=== PATIENT | male | born 1940 | race Caucasian/White ===

== ENCOUNTER 2022-11-24 15:52 | Emergency (ER) | payer MEDICARE, OTHER ==
--- NOTE | 2022-11-24 15:54 | ERPHSYRPT ---
- History of Present Illness Time Seen by Provider: 11/24/22 15:54 Source: patient, family Exam Limitations: no limitations Physician History: This is an 82-year-old right-handed white male who was working on the table saw when he suffered a laceration to the distal portion of his right middle finger. His tetanus status is not up-to-date. Quality: painful Severity: moderate Location: hands (Right third digit distal) Associated Symptoms: denies symptoms Allergies/Adverse Reactions: No Known Drug Allergies Allergy (Verified 11/24/22 16:28) Home Medications: Gabapentin [Neurontin] 400 mg PO TID 11/24/22 [History] Travel Risk - International Travel Have you traveled outside of the country in past 3 weeks: No - Coronavirus Screening Are you exhibiting any of the following symptoms?: No Close contact with a COVID-19 positive Pt in past 14-21 Days: No - Review of Systems Constitutional: No Symptoms Eyes: No Symptoms Ears, Nose, & Throat: No Symptoms Respiratory: No Symptoms Cardiac: No Symptoms Abdominal/Gastrointestinal: No Symptoms Genitourinary Symptoms: No Symptoms Musculoskeletal: Injury (Distal right middle finger) Skin: No Symptoms Neurological: No Symptoms Psychological: No Symptoms Endocrine: No Symptoms Hematologic/Lymphatic: No Symptoms Immunological/Allergic: No Symptoms All Other Systems: Reviewed and Negative - Past Medical History Neurological History: No Pertinent History Cardiac History: No Pertinent History Respiratory History: No Pertinent History Endocrine Medical History: Hypothyroidism, Other Musculoskeletal History: Osteoarthritis Other Medical History: 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 HX RIGHT TKR ABOUT 2 YEARS AGO, ENLARGED PROSTATE, PROSTATE CA - Nursing Vital Signs Nursing Vital Signs: Initial Vital Signs Temperature 98.0 F 11/24/22 16:07 Pulse Rate 91 H 11/24/22 16:07 Blood Pressure 104/65 11/24/22 16:07 O2 Sat by Pulse Oximetry 94 L 11/24/22 16:07 Pain Scale Pain Intensity 6 - Physical Exam General Appearance: no apparent distress, alert, anxiety Eye Exam: PERRL/EOMI, eyes nml inspection Ears, Nose, Throat Exam: normal ENT inspection, moist mucous membranes Neck Exam: normal inspection, non-tender, supple, full range of motion Respiratory Exam: airway intact, No chest tenderness, No respiratory distress Gastrointestinal/Abdomen Exam: tenderness Rectal Exam: not done Back Exam: normal inspection, normal range of motion, No CVA tenderness, No vertebral tenderness Extremity Exam: normal inspection, normal range of motion, pelvis stable Neurologic Exam: alert, oriented x 3, cooperative, 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 Patient has full flexion and extension of his right middle digit. The tendons appear intact.) Lymphatic Exam: No adenopathy SpO2 Interpretation: normal O2 Delivery: Room Air Procedures - Laceration/Wound Repair Right Distal Finger Time of Procedure: 16:40 Wound Location: Right, hand (Distal third digit) Wound Length (cm): 2 Wound's Depth, Shape: irregular, stellate, into subcut Wound Explored: clean (No foreign body noted. Exploration was performed in a bloodless field to the base) Irrigated: Yes Hibiclens Prep: Yes Anesthesia: 1% Lidocaine Volume Anesthetic (ccs): 3 Wound Debrided: minimal Suture Size/Type: 3-0, nylon Number of Sutures: 4 Layer Closure?: No Sterile Dressing Applied?: Yes Progress: 11/24/22 17:00 The area was cleaned and dried after repair. Thin layer of antibiotic ointment was applied and a pressure dressing was applied. Patient tolerated procedure well - Course Nursing assessment & vital signs reviewed: Yes Ordered Tests: Active Orders 24 hr Category Date Time Status Wound Care STAT Care 11/24/22 16:15 Active HAND (MINIMUM 3 VIEWS) Stat Exams 11/24/22 16:24 Completed Medication Summary Discontinued Medications Generic Name Dose Route Start Last Admin Trade Name Freq PRN Reason Stop Dose Admin Bacitracin Zinc 0.9 each 11/24/22 16:15 Bacitracin Packet 1 Each Pckt TP 11/24/22 16:16 STAT ONE Bacitracin Zinc Confirm 11/24/22 16:16 Bacitracin Packet 1 Each Pckt Administered 11/24/22 16:17 Dose 1 each .ROUTE .STK-MED ONE Cephalexin HCl 500 mg 11/24/22 16:38 Cephalexin Mh500 Mg Capsule PO 11/24/22 16:39 STAT ONE Diphtheria/Tetanus/Acell Pertussis 0.5 ml 11/24/22 16:17 11/24/22 16:23 Tdap --Diph,Pertuss(Acell),Tet Vac/Pf 0.5 Ml Vial IM 11/24/22 16:18 0.5 ml .ONCE ONE Administration Diphtheria/Tetanus/Acell Pertussis Confirm 11/24/22 16:21 Tdap --Diph,Pertuss(Acell),Tet Vac/Pf 0.5 Ml Vial Administered 11/24/22 16:22 Dose 0.5 ml IM .STK-MED ONE Lidocaine HCl 5 ml 11/24/22 16:15 11/24/22 16:20 Lidocaine Hcl 1% 20 Ml Mdv 20 Ml Ml IJ 11/24/22 16:16 5 ml STAT ONE Administration Lidocaine HCl Confirm 11/24/22 16:14 Lidocaine Hcl 1% 20 Ml Mdv 20 Ml Ml Administered 11/24/22 16:15 Dose 5 ml .ROUTE .STK-MED ONE - Progress Progress: improved, pain not gone completely, re-examined Progress Note: 11/24/22 16:37 X-ray right hand was interpreted by me. The there is a tuft fracture present of the distal right third phalanx. 11/24/22 16:57 This patient's medical issues 1 of low complexity. The level of complexity in the work-up performed was based on the review of the patient's past medical history, review of the patient's medication list, review of the patient's drug allergy list, history of present illness and physical examination findings. X- ray of the right hand was necessary to evaluate for fracture of this lacerated distal right hand third phalanx. The patient appears to have an open fracture and therefore he will be placed on antibiotics. I approximated the stellate, macerated lacerated site with 4 stitches of 3-0 nylon. Pressure dressing was applied. This is to remain in place until he follows up at the [facility] orthopedic clinic. We contacted Dr. Ruano's office (hand surgeon) and they told us to follow-up at that clinic at 8 AM tomorrow morning. It is on [address]. It is a walk-in clinic and they do not need to have an appointment. Medical Desision Making - Independent Historian Additional History obtained from: Spouse - Diagnostic Testing Diagnostic test were ordered, analyzed, and reviewed by me: Yes Radiological Interpretation: Interpreted by me - Risk of complications The pt has a mod risk of morbidity or mortality based on: Need for prescription drug management - Departure Departure Disposition: Home Clinical Impression: Open fracture of phalanx of digit of hand Condition: Stable Critical Care Time: No Referrals: LISA BENSON MD [Primary Care Provider] - Follow up/PCP as directed Additional Instructions: Keep the current bandage in place and dry until you are evaluated by the [facility] orthopedic clinic on in [place], [place] tomorrow morning at 8 AM. It is a walk-in clinic and you do not need to have an appointment. Take your usual pain medicine as prescribed. Prescriptions: Cephalexin Mh 500 mg [Keflex 500 mg] 500 mg PO TID #21 cap
[2022-11-24] MEDS ORDERED: XYLOCAINE 1% HCL 20 ML MDV ONE (16:14)
[2022-11-24] MEDS ORDERED: XYLOCAINE 1% HCL 20 ML MDV IJ ONE (16:15)
[2022-11-24] MEDS ORDERED: BACIGUENT PACKET TP ONE (16:15)
[2022-11-24] MEDS ORDERED: BACIGUENT PACKET ONE (16:16)
[2022-11-24] MEDS ORDERED: Adacel Vial IM ONE ×2 (16:17→16:21)
[2022-11-24 16:28] VITALS: BP 104/65
[2022-11-24] MEDS ORDERED: KEFLEX 500 MG PO ONE (16:38)
--- NOTE | 2022-11-24 16:44 | XRAY ---
Indication: 3rd digit laceration. Comparison: None 3 view right hand demonstrates distal 3rd phalanx laceration with soft tissue swelling and tiny cortical fracture radial aspect. Elsewhere chronic findings including osteopenia, old fracture distal 3rd phalanx, mild/moderate degenerative changes all IP joints with tiny heterotopic ossifications, moderate 1st metacarpal multangular degenerative changes, and radiocarpal joint space loss.
[2022-11-24] MEDS ORDERED: KEFLEX 500 MG ONE (17:13)
[2022-11-24 17:17] VITALS: PULSE 80; O2SAT 96
== END 2022-11-24 17:23 | disposition home or self-care (01) ==
LOC: ED 15:52
DX: S62.632B Displaced fracture of distal phalanx of right middle finger, initial encounter for open fracture (principal); W27.0XXA Contact with workbench tool, initial encounter; Z79.899 Other long term (current) drug therapy
CPT/HCPCS: 12001; 73130; 90471; 90715; 96372; 99283; A9270-GY

== ENCOUNTER 2023-01-09 23:23 | Emergency (ER) | payer MEDICARE, OTHER ==
[2023-01-09] MEDS ORDERED: XYLOCAINE 1% HCL 20 ML MDV IJ ONE (23:24)
[2023-01-09 23:46] VITALS: BP 139/82; PULSE 80; O2SAT 97
[2023-01-09] MEDS ORDERED: Rocephin 1000 MG INJ IM ONE (23:52)
[2023-01-09] MEDS ORDERED: Rocephin 1000 MG INJ ONE (23:57)
--- NOTE | 2023-01-10 00:04 | ERPHSYRPT ---
- History of Present Illness Time Seen by Provider: 01/09/23 23:50 Source: patient Exam Limitations: no limitations Patient Subjective Stated Complaint: pt states he had surgical repair of open fracture to right distal finger medial approx [address] Winslow in [facility]. he then saw the surgeon 2 days ago and the ex fix pins were removed. yesterday he states it was swollen and red but painless then he bumped it on something and started having tolerable pain. this morning states they unwrapped it and swelling/ redness had increased and there was pain. denies fever. Triage Nursing Assessment: pt ambulated to room 9 independently with cane and slow steady gait. pt is alert and oriented times three (very [id number]'), able to move all extremities, able to speak in complete sentences, and with resp even and unlabored. denies any other ill feelings than his right middle finger. see skin assessment below. Physician History: 83-year-old male presents the emergency room with right middle finger pain, redness and swelling for the past day. Patient had an open fracture of this finger with pinning approximately [address] Ruano at [facility]. On Wednesday the pins were removed and since that time the symptoms have been worsening. reports that the swelling has significantly worsened over the past 4 to 6 hours. No fevers reported. He was on antibiotics after the surgery but nothing since that time. He denies any numbness or tingling to the finger. Occurred: days ago (1) Quality: sharpness Severity of Pain-Max: moderate Severity of Pain-Current: moderate Extremities Pain Location: 3rd finger: right Modifying Factors: Improves With: cold therapy. Worsens With: movement Associated Symptoms: none Allergies/Adverse Reactions: No Known Drug Allergies Allergy (Verified 01/09/23 23:28) Home Medications: Gabapentin [Neurontin] 400 mg PO TID 11/24/22 [History] Hx Tetanus, Diphtheria Vaccination/Date Given: Yes Hx Influenza Vaccination/Date Given: Yes Hx Pneumococcal Vaccination/Date Given: Yes Immunizations Up to Date: Yes Travel Risk - International Travel Have you traveled outside of the country in past 3 weeks: No - Coronavirus Screening Are you exhibiting any of the following symptoms?: No Close contact with a COVID-19 positive Pt in past 14-21 Days: No - Vaccine Status Have you recieved a Covid-19 vaccination: Yes 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: [employer] - Review of Systems Constitutional: No Symptoms Respiratory: No Symptoms Cardiac: No Symptoms Abdominal/Gastrointestinal: No Symptoms Musculoskeletal: Joint Redness (right middle), Joint Pain (right middle), Joint Swelling (right middle) Skin: Cellulitis Neurological: No Parasthesia - Past Medical History Pertinent Past Medical History: Yes Neurological History: No Pertinent History ENT History: No Pertinent History Cardiac History: No Pertinent History Respiratory History: No Pertinent History Endocrine Medical History: Hypothyroidism, Other Musculoskeletal History: Fractures, Osteoarthritis GI Medical History: No Pertinent History History: No Pertinent History Psycho-Social History: No Pertinent History Male Reproductive Disorders: Prostate Cancer, Prostate Problems Other Medical History: 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 HX RIGHT TKR ABOUT 2 YEARS AGO, ENLARGED PROSTATE, PROSTATE CA - Past Surgical History Past Surgical History: Yes Neuro Surgical History: No Pertinent History Cardiac: No Pertinent History Respiratory: No Pertinent History Gastrointestinal: Appendectomy, Hernia Repair, Other Genitourinary: No Pertinent History Musculoskeletal: Orthopedic Surgery Male Surgical History: No Pertinent History Other Surgical History: knee, right middle finger, hernia repair - Social History Smoking Status: Former smoker Exposure to second hand smoke: Yes Drug Use: none Patient Lives Alone: No - Nursing Vital Signs Nursing Vital Signs: Initial Vital Signs Temperature 97.3 F 01/09/23 23:30 Pulse Rate 80 01/09/23 23:30 Respiratory Rate 18 01/09/23 23:30 Blood Pressure 139/82 01/09/23 23:30 O2 Sat by Pulse Oximetry 97 01/09/23 23:30 Pain Scale Pain Intensity 8 - Physical Exam General Appearance: no apparent distress Hand Exam: infection (right 3rd finger), limited ROM (right 3rd finger), soft tissue tenderness (right 3rd finger), stiffness (right 3rd finger), swelling (right 3rd finger) Neuro/Tendon Exam: normal sensation Mental Status Exam: alert, oriented x 3, cooperative SpO2 Interpretation: normal SpO2: 97 O2 Delivery: Room Air Ordered Tests: Medication Summary Discontinued Medications Generic Name Dose Route Start Last Admin Trade Name Freq PRN Reason Stop Dose Admin Ceftriaxone Sodium 1,000 mg 01/09/23 23:52 01/09/23 23:58 Ceftriaxone Sodium 1000 Mg Inj Vial IM 01/09/23 23:53 1,000 mg STAT ONE Administration Ceftriaxone Sodium Confirm 01/09/23 23:57 Ceftriaxone Sodium 1000 Mg Inj Vial Administered 01/09/23 23:58 Dose 1,000 mg .ROUTE .STK-MED ONE - Progress Progress: unchanged Progress Note: Based on examination and patient history I have concerns for flexor tenosynovitis. I discussed that patient will likely need transfer after evaluation with labs and imaging. Patient would like to be discharged and proceed to [facility] for evaluation where Dr. Ruano is located. Patient was agreeable to receiving 1 g of IM Rocephin prior to discharge. I called [facility] emergency room and updated them that the patient would be coming to the emergency room. Counseled pt/family regarding: diagnosis, need for follow-up Medical Desision Making - Risk of complications The pt has a mod risk of morbidity or mortality based on: Need for prescription drug management - Departure Departure Disposition: Home (Patient will travel to [facility]) Clinical Impression: Flexor tenosynovitis of finger, Swelling of right middle finger, Pain of right middle finger, Cellulitis of right middle finger Condition: Stable Critical Care Time: No Referrals: LISA BENSON MD [Primary Care Provider] - Follow up/PCP as directed Instructions: Wound Care (DC) Additional Instructions: Patient will travel to [facility]
== END 2023-01-10 00:12 | disposition home or self-care (01) ==
LOC: ED 23:23
DX: M65.841 Other synovitis and tenosynovitis, right hand (principal); M79.89 Other specified soft tissue disorders; M79.644 Pain in right finger(s); L03.011 Cellulitis of right finger; Z79.899 Other long term (current) drug therapy
CPT/HCPCS: 96372; 99283; J0696

== ENCOUNTER 2023-02-22 10:36 | Observation (INO) | payer MEDICARE, OTHER ==
[2023-02-22 11:56] LABS: Absolute Neutrophil Ct (ANC) 13.21 x10^3/uL (1.4-6.9); BASOPHIL % 0.1 % (0.0-0.4); Basophil (Absolute #) 0.02 x10^3/uL (0-0.4); Eosinophil (Absolute #) 0.45 x10^3/uL (0-0.5); Hematocrit 31.7 % (42-50); Hemoglobin 10.3 g/dL (12.5-18.0); IMMATURE GRAN # 0.26 x10^3u/L (0.00-0.03); IMMATURE GRAN % 1.8 % (0.00-0.4); Lymphocyte (Absolute #) 0.37 x10^3/uL (1.0-4.6); Lymphocytes % 2.5 % (24.0-44.0); Mean Cell Volume 94.6 fL (78-100); Mean Corpuscular Hemoglobin 30.7 pg (26-32); Mean Corpuscular Hgb Concent. 32.5 g/dL (32-36); Mean Platelet Volume 8.8 fL (7.5-11.0); Monocyte (Absolute #) 0.46 x10^3/uL (0.0-1.3); Monocytes % 3.1 % (0.0-12.0); Neutrophil % 89.5 % (36.0-66.0); Platelet Count 423 x10^3/uL (150-450); Red Blood Count 3.35 x10^6/uL (4.1-5.6); Red Cell Distribution Width 12.9 % (11.5-14.0); White Blood Count 14.8 x10^3/uL (4.0-10.5)
--- NOTE | 2023-02-22 11:58 | ERPHSYRPT ---
- History of Present Illness Source: patient, other () Exam Limitations: no limitations Patient Subjective Stated Complaint: C/O Cough for almost 2 weeks with increased SOB and fever for a few days Triage Nursing Assessment: Patient brought back to ER in a W/C. He is alert and oriented; drowsy. Pale. Patient is SOB. 02 sats 87% on room air; he doesn't wear oxygen at home. 02 @ 3L per n/c applied and 02 sats increased to 94%. Edema noted under bilateral eyes. Patient with a dry, non-productive cough present. Slight crackles heard in right lung base. Pain with cough. PICC line noted to ANALISA. Physician History: 83 yo WM w cough/dyspnea/coryza/fever x 1week. Pt is is receiving an antibiotic through PIC line for a finger infection. He saw Dr. Quiros on 02/18/23 for his cough. He denies chest pain/N/V/D/melena/hematochezia/dysuria/hematuria. Pt has metastatic prostate Ca. Timing/Duration: week(s) (1 week) Cough Quality/Degree: dry cough Possible Cause: occasional episodes Modifying Factors: Improves With: activity Associated Symptoms: fever, cough, shortness of breath Allergies/Adverse Reactions: No Known Drug Allergies Allergy (Verified 02/22/23 11:32) Home Medications: Aspirin EC 81 mg [Ecotrin 81 mg] 81 mg PO DAILY 01/13/23 [History] Enzalutamide [Xtandi] 160 mg PO DAILY 01/13/23 [History] Levothyroxine Sodium 88 Mcg [Synthroid 88 Mcg] 88 mcg PO DAILY 01/13/23 [History] Mirtazapine 15 mg PO HS 01/13/23 [History] Ca/D3/Mag Ox/Zinc/Assembler Type Bar And Segment/[place]/Bor [Calcium 600+D3 Plus Caplet] 1 each PO BID 01/14/23 [History] Finasteride 5 mg [Proscar 5 MG] 5 mg PO DAILY 01/14/23 [History] Gabapentin [Neurontin] 400 mg PO TID 01/14/23 [History] Hydrocodone/Acetaminophen [Hydrocodone-Acetamin 10-325 mg] 10 mg PO QID 01/14/23 [History] Levocetirizine Dihydrochloride [Allergy Relief] 5 mg PO DAILY 01/14/23 [History] Meclizine HCl 25 mg [Antivert 25 mg] 25 mg PO TID 01/14/23 [History] Montelukast Sodium 10 mg [Singulair 10 MG] 10 mg PO DAILY 01/14/23 [History] Prochlorperazine Maleate 10 mg PO BID 01/14/23 [History] Venlafaxine HCl 37.5 mg [Effexor 37.5 mg] 37.5 mg PO DAILY 01/14/23 [History] Vibegron [Gemtesa] 75 mg PO DAILY 02/22/23 [History] Hx Tetanus, Diphtheria Vaccination/Date Given: Yes Hx Influenza Vaccination/Date Given: Yes Hx Pneumococcal Vaccination/Date Given: Yes Immunizations Up to Date: Yes Travel Risk - International Travel Have you traveled outside of the country in past 3 weeks: No - Coronavirus Screening Are you exhibiting any of the following symptoms?: Yes Symptoms: Fever, Cough: New Onset, Shortness of Breath Close contact with a COVID-19 positive Pt in past 14-21 Days: No - Vaccine Status Have you recieved a Covid-19 vaccination: Yes 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[employer] - Review of Systems Constitutional: No Symptoms, Fever, Lethargy, Malaise Eyes: No Symptoms Ears, Nose, & Throat: No Symptoms, Nose Congestion, Nose Discharge Respiratory: No Symptoms, Cough, Dyspnea Cardiac: No Symptoms Abdominal/Gastrointestinal: No Symptoms Genitourinary Symptoms: No Symptoms Musculoskeletal: No Symptoms Skin: No Symptoms Neurological: No Symptoms Psychological: No Symptoms Endocrine: No Symptoms Hematologic/Lymphatic: No Symptoms Immunological/Allergic: No Symptoms - Past Medical History Pertinent Past Medical History: Yes Neurological History: No Pertinent History ENT History: No Pertinent History Cardiac History: No Pertinent History Respiratory History: No Pertinent History Endocrine Medical History: Hypothyroidism, Other Musculoskeletal History: Fractures, Osteoarthritis GI Medical History: Hernia History: No Pertinent History Psycho-Social History: No Pertinent History Male Reproductive Disorders: Prostate Cancer, Prostate Problems Other Medical History: 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 ENLARGED PROSTATE, PROSTATE CA - Past Surgical History Past Surgical History: Yes Neuro Surgical History: No Pertinent History Cardiac: No Pertinent History Respiratory: No Pertinent History Gastrointestinal: Appendectomy, Hernia Repair, Other Genitourinary: No Pertinent History Musculoskeletal: Orthopedic Surgery Male Surgical History: No Pertinent History Other Surgical History: knee, right middle finger - Social History Smoking Status: Former smoker Exposure to second hand smoke: Yes Drug Use: none Patient Lives Alone: No - Nursing Vital Signs Nursing Vital Signs: Initial Vital Signs Temperature 98.3 F 02/22/23 11:20 Pulse Rate 100 H 02/22/23 11:20 Respiratory Rate 36 H 02/22/23 11:20 Blood Pressure 162/80 02/22/23 11:20 O2 Sat by Pulse Oximetry 87 L 02/22/23 11:20 Pain Scale Pain Intensity 6 Tachy/Hypertensive/Low Sats - Physical Exam General Appearance: mild distress Eye Exam: PERRL/EOMI, eyes nml inspection Ears, Nose, Throat Exam: normal ENT inspection, TMs normal, pharynx normal, moist mucous membranes Neck Exam: normal inspection, non-tender, supple, full range of motion, No meningismus, No mass, No Brudzinski, No Kernig's Respiratory Exam: crackles/rales (Rale 1/2 up on R/base on L) Cardiovascular Exam: murmur (1/6 MICHELLE), tachycardia Gastrointestinal/Abdomen Exam: soft, normal bowel sounds, No tenderness Back Exam: normal inspection, normal range of motion, No CVA tenderness, No vertebral tenderness Extremity Exam: normal inspection, normal range of motion Neurologic Exam: alert, oriented x 3, cooperative, slurry man II-XII nml as tested, normal mood/affect, sensation nml Skin Exam: normal color, warm, dry Lymphatic Exam: No adenopathy SpO2 Interpretation: normal SpO2: 95 O2 Delivery: Nasal Cannula (2L) - Course Nursing assessment & vital signs reviewed: Yes EKG Interpreted by Me: RATE (Sinus tach/Rate 101/Normal Qt-QTc/No acute ST segment changes) - Radiology Exams Chest X-ray Interpretation: Reviewed by me, Discussed w/ radiologist (R upper lobe-RLL infiltrate/Basilar L infiltrate) Ordered Tests: Active Orders 24 hr Category Date Time Status Call Admit Doctor for Orders ON ADMISSION Care 02/22/23 12:50 Completed EKG-ER Only STAT Care 02/22/23 11:38 Completed IV Insertion STAT Care 02/22/23 11:50 Completed Heart-Healthy Diet Diet 02/22/23 Dinner Active CHEST 1 VIEW (PORTABLE) Stat Exams 02/22/23 11:39 Completed BLOOD CULTURE Stat Lab 02/22/23 12:15 Received CBC W DIFF Stat Lab 02/22/23 11:45 Completed CMP Stat Lab 02/22/23 11:45 Completed Lactic Acid Stat Lab 02/22/23 11:50 Completed NT PRO BNPII Stat Lab 02/22/23 11:45 Completed PROTIME WITH INR Stat Lab 02/22/23 11:45 Completed TROPONIN Q4H Lab 02/22/23 11:45 Completed TROPONIN Q4H Lab 02/22/23 15:43 Completed TROPONIN Q4H Lab 02/22/23 19:45 Ordered Transfer Order Routine Transfer 02/22/23 Completed Medication Summary Generic Name Dose Route Start Last Admin Trade Name Freq PRN Reason Stop Dose Admin Hydrocodone Bitart/Acetaminophen 1 tablet 02/22/23 17:00 02/22/23 17:05 Hydrocodone/Acetamin 10-325 Mg Tablet PO 02/27/23 16:59 1 tablet QID ALY Administration Albuterol Sulfate 2.5 mg 02/22/23 19:00 Albuterol Sulfate 2.5 Mg/3 Ml Neb IH 03/24/23 18:59 TIDRT ALY Aspirin 81 mg 02/23/23 10:00 Aspirin 81 Mg Tablet.Ec PO 03/25/23 09:59 DAILY ALY Calcium Carbonate 1 tab 02/22/23 22:00 Calcium Carbonate 500 Mg/Vitamin D 1 Tab Tablet PO 03/24/23 21:59 BID [facility] Enoxaparin Sodium 40 mg 02/23/23 10:00 Enoxaparin Sodium 40 Mg/0.4 Ml Syringe SQ 03/25/23 09:59 DAILY ALY Finasteride 5 mg 02/23/23 10:00 Finasteride 5 Mg Tablet PO 03/25/23 09:59 DAILY ALY Furosemide 20 mg 02/22/23 17:00 02/22/23 17:05 Furosemide 20 Mg/Vial IV 03/24/23 16:59 20 mg BID DIURETIC ALY Administration Gabapentin 400 mg 02/22/23 22:00 Gabapentin 400 Mg Capsule PO 03/24/23 21:59 TID ALY Heparin Sodium (Beef Lung) 300 units 02/22/23 16:29 02/22/23 17:16 Heparin Lock Flush Pf 500 Units/5 Ml Syringe PICC 03/24/23 16:28 300 units PRN PRN Administration IV PORT FLUSH Piperacillin Sod/Tazobactam 100 mls @ 200 mls/hr 02/22/23 22:00 Sod 4.5 gm/ Sodium Chloride IV 03/24/23 21:59 Q8HT ALY Levothyroxine Sodium 88 mcg 02/23/23 10:00 Levothyroxine Sodium 88 Mcg Tablet PO 03/25/23 09:59 DAILY ALY Loratadine 10 mg 02/23/23 10:00 Loratadine 10 Mg Tablet PO 03/25/23 09:59 DAILY ALY Meclizine HCl 25 mg 02/22/23 22:00 Meclizine Hcl 25 Mg Tablet PO 03/24/23 21:59 TID ALY Mirtazapine 15 mg 02/22/23 22:00 Mirtazapine 15 Mg Tablet PO 03/24/23 21:59 HS ALY Miscellaneous Information 1 each 02/22/23 16:00 Medication Intervention 1 Each Each 03/24/23 15:59 .RN TO CHECK ALY Montelukast Sodium 10 mg 02/23/23 10:00 Montelukast Sodium 10 Mg Tablet PO 03/25/23 09:59 DAILY ALY Gemtesa 75 Mg Tab - 1 each 02/22/23 18:00 Patient Own PO 03/24/23 17:59 DAILY ALY Prednisone 20 mg 02/22/23 22:00 Prednisone 20 Mg Tablet PO 03/24/23 21:59 BID ALY Prochlorperazine 10 mg 02/22/23 22:00 Prochlorperazine Maleate 5 Mg Tablet PO 03/24/23 21:59 BID ALY Venlafaxine HCl 37.5 mg 02/23/23 10:00 Venlafaxine Hcl 37.5 Mg Tablet PO 03/25/23 09:59 DAILY ALY Discontinued Medications Generic Name Dose Route Start Last Admin Trade Name Freq PRN Reason Stop Dose Admin Piperacillin Sod/Tazobactam 100 mls @ 200 mls/hr 02/22/23 11:59 02/22/23 1 2:44 Sod 4.5 gm/ Sodium Chloride IV 02/22/23 12:28 200 mls/hr STAT ONE Administration Sodium Chloride Confirm 02/22/23 12:41 Sodium Chloride 0.9% Administered 02/22/23 12:42 Dose 100 mls @ ud .ROUTE .STK-MED ONE Sodium Chloride Confirm 02/22/23 12:42 Sodium Chloride 100ml Mini-Bag Plus Administered 02/22/23 12:43 Dose 100 mls @ ud IV .STK-MED ONE Azithromycin 500 mg in 250 mls @ 250 mls/hr 02/22/23 12:49 02/22/23 13:09 Zithromax 500 Mg/ 250 Ml Nacl Premix IV 02/22/23 13:48 250 ml/hr STAT STA 250 mls/hr Administration Azithromycin Confirm 02/22/23 13:07 Zithromax 500 Mg/ 250 Ml Nacl Premix Administered 02/22/23 13:08 Dose 500 mg in 250 mls @ ud IV .STK-MED ONE Sodium Chloride 250 mls @ 250 mls/hr 02/22/23 15:00 02/22/23 15:16 Sodium Chloride 0.9% 250 Ml IV 02/22/23 15:59 250 mls/hr .Q1H ALY Administration Miscellaneous Information 1 each 02/22/23 16:00 Medication Intervention 1 Each Each MC 03/24/23 15:59 .RN TO CHECK ALY Piperacillin Sod/Tazobactam Sod Confirm 02/22/23 12:40 Piperacillin/Tazobactam Sodium 4.5 Gm Vial Administered 02/22/23 12:41 Dose 4.5 gm IV .STK-MED ONE Piperacillin Sod/Tazobactam Sod Confirm 02/22/23 12:42 Piperacillin/Tazobactam Sodium 4.5 Gm Vial Administered 02/22/23 12:43 Dose 4.5 gm IV .STK-MED ONE Lab/Rad Data: Laboratory Result Diagrams 02/22/23 11:45 02/22/23 11:45 Laboratory Results 02/22/23 02/22/23 02/22/23 Range/Units 11:50 11:50 11:45 WBC (4.0-10.5) x10^3/uL RBC (4.1-5.6) x10^6/uL Hgb (12.5-18.0) g/dL Hct (42-50) % MCV (78-100) fL MCH (26-32) pg MCHC (32-36) g/dL RDW (11.5-14.0) % Plt Count (150-450) x10^3/uL MPV (7.5-11.0) fL Gran % (36.0-66.0) % Immature Gran % (Auto) (0.00-0.4) % Nucleat RBC Rel Count (0.00-0.1) % Eos # (Auto) (0-0.5) x10^3/uL Immature Gran # (Auto) (0.00-0.03) x10^3u/L Absolute Lymphs (auto) (1.0-4.6) x10^3/uL Absolute Monos (auto) (0.0-1.3) x10^3/uL Absolute Nucleated RBC (0.00-0.01) x10^3u/L Lymphocytes % (24.0-44.0) % Monocytes % (0.0-12.0) % Eosinophils % (0.00-5.0) % Basophils % (0.0-0.4) % Absolute Granulocytes (1.4-6.9) x10^3/uL Basophils # (0-0.4) x10^3/uL PT (9.4-12.5) SECONDS INR (0.8-3.0) Sodium (137-145) mmol/L Potassium (3.5-5.1) mmol/L Chloride (98-107) mmol/L Carbon Dioxide (22-30) mmol/L Anion Gap (5-15) MEQ/L BUN (9-20) mg/dL Creatinine (0.66-1.25) mg/dL Estimated GFR ML/MIN Glucose (74-106) mg/dL Lactic Acid 2.2 H (0.4-2.0) Calcium (8.4-10.2) mg/dL Total Bilirubin (0.2-1.3) mg/dL AST (17-59) U/L ALT (0-50) U/L Alkaline Phosphatase (38-126) U/L Troponin I (0.000-0.034) ng/mL NT-Pro-B Natriuret Pep 1750 (<300) pg/mL Serum Total Protein (6.3-8.2) g/dL Albumin (3.5-5.0) g/dL Influenza Type A Ag NEGATIVE (NEGATIVE) Influenza Type B Ag NEGATIVE (NEGATIVE) RSV (PCR) NEGATIVE (NEGATIVE) SARS-CoV-2 (PCR) NEGATIVE (NEGATIVE) Slides for Path Review 02/22/23 02/22/23 02/22/23 Range/Units 11:45 11:45 11:45 WBC (4.0-10.5) x10^3/uL RBC (4.1-5.6) x10^6/uL Hgb (12.5-18.0) g/dL Hct (42-50) % MCV (78-100) fL MCH (26-32) pg MCHC (32-36) g/dL RDW (11.5-14.0) % Plt Count (150-450) x10^3/uL MPV (7.5-11.0) fL Gran % (36.0-66.0) % Immature Gran % (Auto) (0.00-0.4) % Nucleat RBC Rel Count (0.00-0.1) % Eos # (Auto) (0-0.5) x10^3/uL Immature Gran # (Auto) (0.00-0.03) x10^3u/L Absolute Lymphs (auto) (1.0-4.6) x10^3/uL Absolute Monos (auto) (0.0-1.3) x10^3/uL Absolute Nucleated RBC (0.00-0.01) x10^3u/L Lymphocytes % (24.0-44.0) % Monocytes % (0.0-12.0) % Eosinophils % (0.00-5.0) % Basophils % (0.0-0.4) % Absolute Granulocytes (1.4-6.9) x10^3/uL Basophils # (0-0.4) x10^3/uL PT 11.0 (9.4-12.5) SECONDS INR 1.01 (0.8-3.0) Sodium 133 L (137-145) mmol/L Potassium 3.9 (3.5-5.1) mmol/L Chloride 98 (98-107) mmol/L Carbon Dioxide 28 (22-30) mmol/L Anion Gap 10.5 (5-15) MEQ/L BUN 20 (9-20) mg/dL Creatinine 0.73 (0.66-1.25) mg/dL Estimated GFR > 60.0 ML/MIN Glucose 105 (74-106) mg/dL Lactic Acid (0.4-2.0) Calcium 8.5 (8.4-10.2) mg/dL Total Bilirubin 0.70 (0.2-1.3) mg/dL AST 42 (17-59) U/L ALT 37 (0-50) U/L Alkaline Phosphatase 228 H (38-126) U/L Troponin I < 0.012 (0.000-0.034) ng/mL NT-Pro-B Natriuret Pep (<300) pg/mL Serum Total Protein 5.8 L (6.3-8.2) g/dL Albumin 2.8 L (3.5-5.0) g/dL Influenza Type A Ag (NEGATIVE) Influenza Type B Ag (NEGATIVE) RSV (PCR) (NEGATIVE) SARS-CoV-2 (PCR) (NEGATIVE) Slides for Path Review 02/22/23 Range/Units 11:45 WBC 14.8 H (4.0-10.5) x10^3/uL RBC 3.35 L (4.1-5.6) x10^6/uL Hgb 10.3 L (12.5-18.0) g/dL Hct 31.7 L (42-50) % MCV 94.6 (78-100) fL MCH 30.7 (26-32) pg MCHC 32.5 (32-36) g/dL RDW 12.9 (11.5-14.0) % Plt Count 423 (150-450) x10^3/uL MPV 8.8 (7.5-11.0) fL Gran % 89.5 H (36.0-66.0) % Immature Gran % (Auto) 1.8 H (0.00-0.4) % Nucleat RBC Rel Count 0.0 (0.00-0.1) % Eos # (Auto) 0.45 (0-0.5) x10^3/uL Immature Gran # (Auto) 0.26 H (0.00-0.03) x10^3u/L Absolute Lymphs (auto) 0.37 L (1.0-4.6) x10^3/uL Absolute Monos (auto) 0.46 (0.0-1.3) x10^3/uL Absolute Nucleated RBC 0.00 (0.00-0.01) x10^3u/L Lymphocytes % 2.5 L (24.0-44.0) % Monocytes % 3.1 (0.0-12.0) % Eosinophils % 3.0 (0.00-5.0) % Basophils % 0.1 (0.0-0.4) % Absolute Granulocytes 13.21 H (1.4-6.9) x10^3/uL Basophils # 0.02 (0-0.4) x10^3/uL PT (9.4-12.5) SECONDS INR (0.8-3.0) Sodium (137-145) mmol/L Potassium (3.5-5.1) mmol/L Chloride (98-107) mmol/L Carbon Dioxide (22-30) mmol/L Anion Gap (5-15) MEQ/L BUN (9-20) mg/dL Creatinine (0.66-1.25) mg/dL Estimated GFR ML/MIN Glucose (74-106) mg/dL Lactic Acid (0.4-2.0) Calcium (8.4-10.2) mg/dL Total Bilirubin (0.2-1.3) mg/dL AST (17-59) U/L ALT (0-50) U/L Alkaline Phosphatase (38-126) U/L Troponin I (0.000-0.034) ng/mL NT-Pro-B Natriuret Pep (<300) pg/mL Serum Total Protein (6.3-8.2) g/dL Albumin (3.5-5.0) g/dL Influenza Type A Ag (NEGATIVE) Influenza Type B Ag (NEGATIVE) RSV (PCR) (NEGATIVE) SARS-CoV-2 (PCR) (NEGATIVE) Slides for Path Review YES - Progress Progress: improved Progress Note: 02/22/23 18:15 Nursing note and vital signs reviewed No food or housing insecurities noted O2 per NC palced on pt when he arrived to ER due to low sats 02/22/23 18:16 Additional history per All labs reviewed and shared w pt/ CXR result reviewed and shared w pt/ 02/22/23 18:17 Blood cultures x2 4.5 gms IV Zosyn Obs per Dr. Hatfield Zithromax 500mg IV Full code per pt Counseled pt/family regarding: lab results, diagnosis, rad results - Departure Departure Disposition: Observation Clinical Impression: Pneumonia Condition: Stable Critical Care Time: Yes Critical Care Time(excluding separately billable procedures): Critical 30-74 mins
[2023-02-22] MEDS ORDERED: PIPERACILLIN/TAZOBACTAM 4.5 GM in Sodium Chloride 100ML MINI-BAG PLUS 100 ML IV ONE (11:59)
--- NOTE | 2023-02-22 12:07 | XRAY ---
Indication: Dyspnea and cough. Comparison: February 19, 2022 Portable apical lordotic chest now underinflated. New diffuse right lung and left base patchy consolidating/nonconsolidating airspace disease, possible Covid 19 pneumonia in right clinical setting. Heart not enlarged. Bony thorax intact again with mild degenerative changes.
[2023-02-22 12:09] LABS: INR 1.01 (0.8-3.0)
[2023-02-22 12:12] LABS: ALBUMIN 2.8 g/dL (3.5-5.0); ALKALINE PHOSPHATASE 228 U/L (38-126); ANION GAP 10.5 MEQ/L (5-15); BLOOD UREA NITROGEN 20 mg/dL (9-20); CHLORIDE 98 mmol/L (98-107); Calcium 8.5 mg/dL (8.4-10.2); Carbon Dioxide 28 mmol/L (22-30); Creatinine 1 0.73 mg/dL (0.66-1.25); EST GLOMERULAR FILTRATION RATE > 60.0 ML/MIN; Glucose 105 mg/dL (74-106); Potassium 3.9 mmol/L (3.5-5.1); SGOT/AST 42 U/L (17-59); SGPT/ALT 37 U/L (0-50); SODIUM 133 mmol/L (137-145); Total Protein 5.8 g/dL (6.3-8.2)
[2023-02-22 12:34] LABS: INFLUENZA A NEGATIVE (NEGATIVE); INFLUENZA B NEGATIVE (NEGATIVE); RESPIRATORY SYNCTIAL VIRUS NEGATIVE (NEGATIVE); SARS-CoV-2 Xpert Express NEGATIVE (NEGATIVE)
[2023-02-22] MEDS ORDERED: PIPERACILLIN/TAZOBACTAM IV ONE ×2 (12:40→12:42)
[2023-02-22] MEDS ORDERED: Sodium Chloride 0.9% 0 ML ONE (12:41)
[2023-02-22] MEDS ORDERED: Sodium Chloride 100ML MINI-BAG PLUS 100 ML IV ONE (12:42)
[2023-02-22] MEDS ORDERED: Zithromax 500 MG/ 250 ML NaCl Premix 500 MG/250 ML IVPB IV STA (12:49)
[2023-02-22] MEDS ORDERED: Zithromax 500 MG/ 250 ML NaCl Premix 500 MG/250 ML IVPB IV ONE (13:07)
[2023-02-22 13:19] LABS: Slide Review 1 YES
--- NOTE | 2023-02-22 14:47 | PCM.HP ---
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 Pt came into the ER C/O Cough for almost 2 weeks with increased SOB, and fever for 3 days. He has had some intermittent, non radiating CP in the center of his chest for 3 days as well. Pt reports it's mostly in the morning. Activity made his sxs worse. Nothing made him feel better. In ER 02 sats 87% on room air; he doesn't wear oxygen at home. 02 @ 3L per n/c applied and 02 sats increased to 94%. Patient with a dry, non-productive cough present. + 3 pitting edema to BLLE. PICC line noted to LUE for recent infection and injury to finger. Antibiotics prescribed by Dr. Fairbanks- ID, OP. is wanting PICC line removed if OK with Dr. Fairbanks. Will reach out to him to discuss. Pt has a Lactic acid of 2.2, CBC 14.8, Chest XR shows right sided pneumonia, HR elevated. Does meet r equirements for sepsis. BCX2 drawn in ER. 1st trop negative. PCP- Dr. Gipson Manager Salt: Dr. Johnson - Review of Systems Constitutional: Fever, Weakness, No Chills Eyes: No Symptoms Ears, Nose, & Throat: No Symptoms Respiratory: Cough, Short Of Breath Cardiac: Chest Pain, Edema, No Syncope Abdominal/Gastrointestinal: No Abdominal Pain, No Nausea, No Vomiting, No Diarrhea Genitourinary Symptoms: No Dysuria Musculoskeletal: No Back Pain, No Neck Pain Skin: No Rash Neurological: No Dizziness, No Focal Weakness, No Sensory Changes Psychological: No Symptoms Endocrine: No Symptoms Hematologic/Lymphatic: No Symptoms Immunological/Allergic: No Symptoms Medications & Allergies Home Medications: Home Medication List Aspirin EC 81 mg [Ecotrin 81 mg] 81 mg PO DAILY 01/13/23 [History Confirmed 02/22/23] Enzalutamide [Xtandi] 40 mg PO QID 01/13/23 [History Confirmed 02/22/23] Levothyroxine Sodium 88 Mcg [Synthroid 88 Mcg] 88 mcg PO DAILY 01/13/23 [History Confirmed 02/22/23] Mirtazapine 15 mg PO HS 01/13/23 [History Confirmed 02/22/23] Ca/D3/Mag Ox/Zinc/Radio Host/[place]/Bor [Calcium 600+D3 Plus Caplet] 1 each PO BID 01/14/23 [History Confirmed 02/22/23] Finasteride 5 mg [Proscar 5 MG] 5 mg PO DAILY 01/14/23 [History Confirmed 02/22/23] Gabapentin [Neurontin] 400 mg PO TID 01/14/23 [History Confirmed 02/22/23] Hydrocodone/Acetaminophen [Hydrocodone-Acetamin 10-325 mg] 10 mg PO QID 01/14/23 [History Confirmed 02/22/23] Levocetirizine Dihydrochloride [Allergy Relief] 5 mg PO DAILY 01/14/23 [History Confirmed 02/22/23] Meclizine HCl 25 mg [Antivert 25 mg] 25 mg PO TID 01/14/23 [History Confirmed 02/22/23] Montelukast Sodium 10 mg [Singulair 10 MG] 10 mg PO DAILY 01/14/23 [History Confirmed 02/22/23] Prochlorperazine Maleate 10 mg PO BID 01/14/23 [History Confirmed 02/22/23] Venlafaxine HCl 37.5 mg [Effexor 37.5 mg] 37.5 mg PO DAILY 01/14/23 [History Confirmed 02/22/23] Vibegron [Gemtesa] 75 mg PO DAILY 02/22/23 [History Confirmed 02/22/23] Allergies/Adverse Reactions: Allergies Allergy/AdvReac Type Severity Reaction Status Date / Time No Known Drug Allergies Allergy Verified 02/22/23 11:32 - Past Medical History Past Medical History: Yes Neurological History: No Pertinent History ENT History: No Pertinent History Cardiac History: No Pertinent History Respiratory History: No Pertinent History Endocrine Medical History: Hypothyroidism, Other Musculoskelatal History: Fractures, Osteoarthritis GI Medical History: Hernia History: No Pertinent History Pyscho-Social History: No Pertinent History Male Reproductive Disorders: Prostate Cancer, Prostate Problems Comment: 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 ENLARGED PROSTATE, PROSTATE CA - Past Surgical History Past Surgical History: Yes Neuro Surgical History: No Pertinent History Cardiac History: No Pertinent History Respiratory Surgery: No Pertinent History GI Surgical History: Appendectomy, Hernia Repair, Other Genitourinary Surgical Hx: No Pertinent History Musculskeletal Surgical Hx: Orthopedic Surgery Male Surgical History: No Pertinent History Other Surgical History: knee, right middle finger - Social History Smoking Status: Former smoker How long have you smoked: 30 years Exposure to second hand smoke: Yes Alcohol: None Drug Use: none - Physical Exam Vital Signs: Vital Signs - 24 hr Temp Pulse Resp BP BP Pulse Ox 02/22/23 13:45 98.4 F 104 H 19 121/67 93 L 02/22/23 13:26 98.3 F 101 H 19 121/67 93 L 02/22/23 12:43 95 02/22/23 12:01 101 H 136/68 96 02/22/23 11:25 103 H 24 162/80 95 02/22/23 11:20 98.3 F 100 H 36 H 162/80 87 L General Appearance: no apparent distress, alert Neurologic Exam: alert, oriented x 3, cooperative, normal mood/affect, nml cerebellar function, nml station & gait, sensation nml, No motor deficits Eye Exam: PERRL/EOMI, eyes nml inspection Ears, Nose, Throat Exam: normal ENT inspection, TMs normal, pharynx normal, moist mucous membranes Neck Exam: normal inspection, non-tender, supple, full range of motion Respiratory Exam: crackles/rales, wheezing (Right lung benjamin), other (3 LNC- BL RA), No respiratory distress Cardiovascular Exam: regular rate/rhythm, normal heart sounds, normal peripheral pulses, edema (+ 3 pitting BLLE) Gastrointestinal/Abdomen Exam: soft, normal bowel sounds, No tenderness, No mass Back Exam: normal inspection, normal range of motion, No CVA tenderness, No vertebral tenderness Extremity Exam: normal inspection, normal range of motion, pelvis stable Skin Exam: normal color, warm, dry, No rash Lymphatic Exam: No adenopathy Results - Labs Lab/Micro Results: Lab Results-Last 24 Hours 02/22/23 02/22/23 02/22/23 Range/Units 11:45 11:45 11:45 WBC 14.8 H (4.0-10.5) x10^3/uL RBC 3.35 L (4.1-5.6) x10^6/uL Hgb 10.3 L (12.5-18.0) g/dL Hct 31.7 L (42-50) % MCV 94.6 (78-100) fL MCH 30.7 (26-32) pg MCHC 32.5 (32-36) g/dL RDW 12.9 (11.5-14.0) % Plt Count 423 (150-450) x10^3/uL MPV 8.8 (7.5-11.0) fL Gran % 89.5 H (36.0-66.0) % Immature Gran % (Auto) 1.8 H (0.00-0.4) % Nucleat RBC Rel Count 0.0 (0.00-0.1) % Eos # (Auto) 0.45 (0-0.5) x10^3/uL Immature Gran # (Auto) 0.26 H (0.00-0.03) x10^3u/L Absolute Lymphs (auto) 0.37 L (1.0-4.6) x10^3/uL Absolute Monos (auto) 0.46 (0.0-1.3) x10^3/uL Absolute Nucleated RBC 0.00 (0.00-0.01) x10^3u/L Lymphocytes % 2.5 L (24.0-44.0) % Monocytes % 3.1 (0.0-12.0) % Eosinophils % 3.0 (0.00-5.0) % Basophils % 0.1 (0.0-0.4) % Absolute Granulocytes 13.21 H (1.4-6.9) x10^3/uL Basophils # 0.02 (0-0.4) x10^3/uL PT 11.0 (9.4-12.5) SECONDS INR 1.01 (0.8-3.0) Sodium 133 L (137-145) mmol/L Potassium 3.9 (3.5-5.1) mmol/L Chloride 98 (98-107) mmol/L Carbon Dioxide 28 (22-30) mmol/L Anion Gap 10.5 (5-15) MEQ/L BUN 20 (9-20) mg/dL Creatinine 0.73 (0.66-1.25) mg/dL Estimated GFR > 60.0 ML/MIN Glucose 105 (74-106) mg/dL Lactic Acid (0.4-2.0) Calcium 8.5 (8.4-10.2) mg/dL Total Bilirubin 0.70 (0.2-1.3) mg/dL AST 42 (17-59) U/L ALT 37 (0-50) U/L Alkaline Phosphatase 228 H (38-126) U/L Troponin I (0.000-0.034) ng/mL NT-Pro-B Natriuret Pep (<300) pg/mL Serum Total Protein 5.8 L (6.3-8.2) g/dL Albumin 2.8 L (3.5-5.0) g/dL Influenza Type A Ag (NEGATIVE) Influenza Type B Ag (NEGATIVE) RSV (PCR) (NEGATIVE) SARS-CoV-2 (PCR) (NEGATIVE) Slides for Path Review YES 02/22/23 02/22/23 02/22/23 Range/Units 11:45 11:45 11:50 WBC (4.0-10.5) x10^3/uL RBC (4.1-5.6) x10^6/uL Hgb (12.5-18.0) g/dL Hct (42-50) % MCV (78-100) fL MCH (26-32) pg MCHC (32-36) g/dL RDW (11.5-14.0) % Plt Count (150-450) x10^3/uL MPV (7.5-11.0) fL Gran % (36.0-66.0) % Immature Gran % (Auto) (0.00-0.4) % Nucleat RBC Rel Count (0.00-0.1) % Eos # (Auto) (0-0.5) x10^3/uL Immature Gran # (Auto) (0.00-0.03) x10^3u/L Absolute Lymphs (auto) (1.0-4.6) x10^3/uL Absolute Monos (auto) (0.0-1.3) x10^3/uL Absolute Nucleated RBC (0.00-0.01) x10^3u/L Lymphocytes % (24.0-44.0) % Monocytes % (0.0-12.0) % Eosinophils % (0.00-5.0) % Basophils % (0.0-0.4) % Absolute Granulocytes (1.4-6.9) x10^3/uL Basophils # (0-0.4) x10^3/uL PT (9.4-12.5) SECONDS INR (0.8-3.0) Sodium (137-145) mmol/L Potassium (3.5-5.1) mmol/L Chloride (98-107) mmol/L Carbon Dioxide (22-30) mmol/L Anion Gap (5-15) MEQ/L BUN (9-20) mg/dL Creatinine (0.66-1.25) mg/dL Estimated GFR ML/MIN Glucose (74-106) mg/dL Lactic Acid (0.4-2.0) Calcium (8.4-10.2) mg/dL Total Bilirubin (0.2-1.3) mg/dL AST (17-59) U/L ALT (0-50) U/L Alkaline Phosphatase (38-126) U/L Troponin I < 0.012 (0.000-0.034) ng/mL NT-Pro-B Natriuret Pep 1750 (<300) pg/mL Serum Total Protein (6.3-8.2) g/dL Albumin (3.5-5.0) g/dL Influenza Type A Ag NEGATIVE (NEGATIVE) Influenza Type B Ag NEGATIVE (NEGATIVE) RSV (PCR) NEGATIVE (NEGATIVE) SARS-CoV-2 (PCR) NEGATIVE (NEGATIVE) Slides for Path Review 02/22/23 Range/Units 11:50 WBC (4.0-10.5) x10^3/uL RBC (4.1-5.6) x10^6/uL Hgb (12.5-18.0) g/dL Hct (42-50) % MCV (78-100) fL MCH (26-32) pg MCHC (32-36) g/dL RDW (11.5-14.0) % Plt Count (150-450) x10^3/uL MPV (7.5-11.0) fL Gran % (36.0-66.0) % Immature Gran % (Auto) (0.00-0.4) % Nucleat RBC Rel Count (0.00-0.1) % Eos # (Auto) (0-0.5) x10^3/uL Immature Gran # (Auto) (0.00-0.03) x10^3u/L Absolute Lymphs (auto) (1.0-4.6) x10^3/uL Absolute Monos (auto) (0.0-1.3) x10^3/uL Absolute Nucleated RBC (0.00-0.01) x10^3u/L Lymphocytes % (24.0-44.0) % Monocytes % (0.0-12.0) % Eosinophils % (0.00-5.0) % Basophils % (0.0-0.4) % Absolute Granulocytes (1.4-6.9) x10^3/uL Basophils # (0-0.4) x10^3/uL PT (9.4-12.5) SECONDS INR (0.8-3.0) Sodium (137-145) mmol/L Potassium (3.5-5.1) mmol/L Chloride (98-107) mmol/L Carbon Dioxide (22-30) mmol/L Anion Gap (5-15) MEQ/L BUN (9-20) mg/dL Creatinine (0.66-1.25) mg/dL Estimated GFR ML/MIN Glucose (74-106) mg/dL Lactic Acid 2.2 H (0.4-2.0) Calcium (8.4-10.2) mg/dL Total Bilirubin (0.2-1.3) mg/dL AST (17-59) U/L ALT (0-50) U/L Alkaline Phosphatase (38-126) U/L Troponin I (0.000-0.034) ng/mL NT-Pro-B Natriuret Pep (<300) pg/mL Serum Total Protein (6.3-8.2) g/dL Albumin (3.5-5.0) g/dL Influenza Type A Ag (NEGATIVE) Influenza Type B Ag (NEGATIVE) RSV (PCR) (NEGATIVE) SARS-CoV-2 (PCR) (NEGATIVE) Slides for Path Review - Radiology Impressions Radiology Exams & Impressions: Radiology Procedures Category Date Time Status CHEST 1 VIEW (PORTABLE) Stat Exams 02/22/23 11:39 Completed CHEST WITH CONTRAST [CT] Urgent Exams 02/22/23 14:00 Ordered - Other Procedures and Tests Respiratory Therapy 02/22/23 13:56 Oxygen Nasal Cannula 3 lpm Respiratory Therapy Assessment DAILY Assessment/Plan (1) Sepsis Current Visit: Yes Status: Acute Assessment & Plan: -2/2 pneumonia -Lactate 2.2 @ 11:50- it appears 200 ml NS fluid blous gave in ER - WBC, HR elevated - Lactate reordered and pending - NS 250 fluid bolus on IP unit - Zosyn IV (2) Pneumonia Current Visit: Yes Status: Acute Assessment & Plan: - Zosyn - NS @ 3LNC - Baseline is room air - CT pending - Chest XR 02/22 Portable apical lordotic chest now underinflated. New diffuse right lung and left base patchy consolidating/nonconsolidating airspace disease, possible Covid 19 pneumonia in right clinical setting. Heart not enlarged. Bony thorax intact again with mild degenerative changes. - COVID/ Flu negative Code(s): J18.9 - PNEUMONIA, UNSPECIFIED ORGANISM (3) Prostate cancer metastatic to bone Current Visit: Yes Status: Acute Assessment & Plan: - currently receiving oral OP tx - Continue home meds- pt has brought medication in - oncologist Dr. Donovan Code(s): C61 - MALIGNANT NEOPLASM OF PROSTATE; C79.51 - SECONDARY MALIGNANT NEOPLASM OF BONE (4) Shortness of breath Current Visit: Yes Status: Acute Assessment & Plan: -r/t pneumonia/ CHF - CT scan pending - O2 3LNC- Baseline RA - prednisone 20mg BID Code(s): R06.02 - SHORTNESS OF BREATH (5) PICC (peripherally inserted central catheter) in place Current Visit: Yes Status: Acute Assessment & Plan: - Discussed with Dr. Desire willson for PICC line to be removed. - Finger lac appears to be healed and no s/s of infection - Order for line d/c placed Code(s): Z45.2 - ENCOUNTER FOR ADJUSTMENT AND MANAGEMENT OF VAD (6) Hypothyroidism Current Visit: Yes Status: Chronic Assessment & Plan: -Continue Levothyroxine Code(s): E03.9 - HYPOTHYROIDISM, UNSPECIFIED (7) CHF (congestive heart failure) Current Visit: Yes Status: Chronic Assessment & Plan: - Echo 12/11/21: IMPRESSION: 1. MILD CONCENTRIC LEFT VENTRICULAR HYPERTROPHY WITH NORMAL LEFT VENTRICULAR SYSTOLIC FUNCTION. 2. SUGGESTION OF LV DIASTOLIC DYSFUNCTION. 3. MILD TO MODERATE AORTIC ROOT DILATATION. 4. MILD TO MODERATE MITRAL REGURGITATION AND TRACE TO MILD TRICUSPID REGURGITATION. - + 3 pitting edema - Started lasix 20mg IV BID VTE:Lovenox Code: Full D/C plan: 2-3 days Next of kin: Code(s): I50.9 - HEART FAILURE, UNSPECIFIED
[2023-02-22] MEDS ORDERED: Sodium Chloride 0.9% 250 ML 250 ML IV SCH (15:00)
[2023-02-22] MEDS ORDERED: MEDICATION INTERVENTION MC SCH ×2 (16:00)
--- NOTE | 2023-02-22 16:42 | XRAY ---
Indication: Short of breath. Carcinoma with metastasis. Multiple contiguous axial images obtained through the chest using 80 cc Isovue 370 contrast and PE protocol. Comparison: CT chest without contrast May 16, 2019 Good opacification of the pulmonary arteries to including lobar and segmental branches. No pulmonary embolus. Hearts not enlarged. Aorta again mildly arteriosclerotic without aneurysm/dissection. Small centimeter/subcentimeter mediastinal lymph nodes, none pathologically enlarged. Lungs demonstrates diffuse right lung and lesser degree diffuse left lung patchy consolidating/nonconsolidating airspace disease. Also new small bilateral effusions, right greater than left. Bony thorax intact again with osteopenia and mild degenerative changes throughout the spine. Axial spine demonstrates new patchy sclerotic lesions, greatest T7 favoring osteoblastic metastasis. Limited upper abdomen demonstrates new diffuse mottled appearance to the liver worrisome for additional metastasis. Also new tiny gallstone. Impression: 1. Negative pulmonary embolus. 2. New diffuse bilateral consolidating/nonconsolidating airspace disease with small effusions, right lung greater than left. Rule out Covid 19 pneumonia. 3. New axial spine bony metastasis. Diffusely mottled appearing liver, probably metastatic.
[2023-02-22] MEDS ORDERED: ENZALUTAMIDE 40 MG PO SCH (17:00)
[2023-02-22] MEDS: HYDROCODONE-ACETAMIN 10-325 MG PO SCH ×2 (17:05→21:43)
[2023-02-22] MEDS: Lasix 20 MG/2 ML IV SCH (17:05)
[2023-02-22] MEDS: PATIENT OWN MEDICATION PO SCH (18:42)
[2023-02-22] MEDS ORDERED: PROVENTIL 2.5 MG/3 ML NEB IH SCH (19:00)
[2023-02-22] MEDS: PROVENTIL 2.5 MG/3 ML NEB IH SCH (19:09)
[2023-02-22] MEDS ORDERED: REMERON 30 MG ONE (21:25)
[2023-02-22] MEDS: PIPERACILLIN/TAZOBACTAM 4.5 GM in Sodium Chloride 100ML MINI-BAG PLUS 100 ML IV SCH (21:43)
[2023-02-22] MEDS: Compazine 5 MG PO SCH (21:43)
[2023-02-22] MEDS: ANTIVERT 25 MG PO SCH (21:43)
[2023-02-22] MEDS: Neurontin PO SCH (21:43)
[2023-02-22] MEDS: REMERON 30 MG PO SCH (21:43)
[2023-02-22] MEDS: DELTASONE 20 MG PO SCH (21:44)
[2023-02-22] MEDS: Calcium 500MG W/Vit D Tablet PO SCH (21:44)
[2023-02-22] MEDS ORDERED: PROCHLORPERAZINE MALEATE 10 MG PO SCH (22:00)
[2023-02-22] MEDS ORDERED: [UNRECOGNIZED DRUG - OTHER] PO SCH (22:00)
[2023-02-22] MEDS ORDERED: MIRTAZAPINE PO SCH (22:00)
[2023-02-23 05:00] LABS: Hematocrit 30.7 % (42-50); Hemoglobin 9.8 g/dL (12.5-18.0); Mean Cell Volume 95.3 fL (78-100); Mean Corpuscular Hemoglobin 30.4 pg (26-32); Mean Corpuscular Hgb Concent. 31.9 g/dL (32-36); Platelet Count 389 x10^3/uL (150-450); Red Blood Count 3.22 x10^6/uL (4.1-5.6); Red Cell Distribution Width 13.1 % (11.5-14.0)
[2023-02-23 05:23] LABS: ALBUMIN 2.6 g/dL (3.5-5.0); ALKALINE PHOSPHATASE 203 U/L (38-126); ANION GAP 6.3 MEQ/L (5-15); BLOOD UREA NITROGEN 24 mg/dL (9-20); CHLORIDE 100 mmol/L (98-107); Calcium 8.4 mg/dL (8.4-10.2); Carbon Dioxide 34 mmol/L (22-30); Creatinine 1 0.95 mg/dL (0.66-1.25); EST GLOMERULAR FILTRATION RATE > 60.0 ML/MIN; Glucose 126 mg/dL (74-106); Potassium 4.2 mmol/L (3.5-5.1); SGOT/AST 26 U/L (17-59); SGPT/ALT 33 U/L (0-50); SODIUM 135 mmol/L (137-145); Total Protein 5.5 g/dL (6.3-8.2)
[2023-02-23] MEDS: PIPERACILLIN/TAZOBACTAM 4.5 GM in Sodium Chloride 100ML MINI-BAG PLUS 100 ML IV SCH ×3 (05:51→21:17)
[2023-02-23] MEDS: PROVENTIL 2.5 MG/3 ML NEB IH SCH ×3 (07:29→19:29)
[2023-02-23] MEDS: ANTIVERT 25 MG PO SCH ×3 (09:55→21:16)
[2023-02-23] MEDS: HYDROCODONE-ACETAMIN 10-325 MG PO SCH ×4 (09:56→21:16)
[2023-02-23] MEDS: ECOTRIN 81 MG PO SCH (09:56)
[2023-02-23] MEDS: EFFEXOR 37.5 MG PO SCH (09:56)
[2023-02-23] MEDS: Calcium 500MG W/Vit D Tablet PO SCH ×2 (09:57→21:16)
[2023-02-23] MEDS: Singulair 10 MG PO SCH (09:57)
[2023-02-23] MEDS: DELTASONE 20 MG PO SCH (09:57)
[2023-02-23] MEDS: Neurontin PO SCH ×3 (09:57→21:15)
[2023-02-23] MEDS: CLARITIN 10 MG PO SCH (09:57)
[2023-02-23] MEDS: Compazine 5 MG PO SCH ×2 (09:58→21:16)
[2023-02-23] MEDS: Lasix 20 MG/2 ML IV SCH (09:59)
[2023-02-23] MEDS: SYNTHROID 88 MCG PO SCH (10:00)
[2023-02-23] MEDS ORDERED: ENOXAPARIN SODIUM SQ SCH ×2 (10:00→13:40)
[2023-02-23] MEDS: Proscar 5 MG PO SCH (10:00)
[2023-02-23] MEDS ORDERED: NON-FORMULARY ITEM (Levocetirizine Dihydrochloride [Allergy Relief] 5 MG Tablet) PO SCH (10:00)
[2023-02-23] MEDS ORDERED: NON-FORMULARY ITEM (Vibegron [Gemtesa] 75 MG Tablet) PO SCH (10:00)
[2023-02-23] MEDS: PATIENT OWN MEDICATION PO SCH ×2 (10:00→14:18)
--- NOTE | 2023-02-23 13:44 | PCM.NOTE ---
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 Pt came into the ER C/O Cough for almost 2 weeks with increased SOB, and fever for 3 days. He has had some intermittent, non radiating CP in the center of his chest for 3 days as well. Pt reports it's mostly in the morning. Activity made his sxs worse. Nothing made him feel better. In ER 02 sats 87% on room air; he doesn't wear oxygen at home. 02 @ 3L per n/c applied and 02 sats increased to 94%. Patient with a dry, non-productive cough present. + 3 pitting edema to BLLE. PICC line noted to LUE for recent infection and injury to finger. Antibiotics prescribed by Dr. Fairbanks- ID, OP. is wanting PICC line removed if OK with Dr. Fairbanks. Will reach out to him to discuss. Pt has a Lactic acid of 2.2, CBC 14.8, Chest XR shows right sided pneumonia, HR elevated. Does meet requirements for sepsis. BCX2 drawn in ER and pending. 1st trop negative. 02/23/23 Pt explained he is feeling much better today. Lactate now under 2. Edema and SOB have improved. Troponins x3 negative. CT negative for PE and showed BL small effusions. Will decrease Lasix and stop steroids. Pt continues to require 3 LNC and baseline is RA. Will try to wean. Spoke with Dr. Fairbanks yesterday and he is ok with PICC line removal. Nursing is currently using for IV access and we will plan to remove at D/C. BC X2 pending. Pt denies CP, Abd pain, N/V/D. PCP- Dr. Gipson Cytogenetic Technologist: Dr. Johnson - Review of Systems Constitutional: No Fever, No Chills Eyes: No Symptoms Ears, Nose, & Throat: No Symptoms Respiratory: Cough, Short Of Breath, Wheezing Cardiac: No Chest Pain, No Edema, No Syncope Abdominal/Gastrointestinal: No Abdominal Pain, No Nausea, No Vomiting, No Diarrhea Genitourinary Symptoms: No Dysuria Musculoskeletal: No Back Pain, No Neck Pain Skin: No Rash Neurological: No Dizziness, No Focal Weakness, No Sensory Changes Psychological: No Symptoms Endocrine: No Symptoms Hematologic/Lymphatic: No Symptoms Immunological/Allergic: No Symptoms Objective Exam General Appearance: no apparent distress, alert Neurologic Exam: alert, oriented x 3, cooperative, normal mood/affect, nml cerebellar function, sensation nml, No motor deficits Skin Exam: normal color, warm, dry Eye Exam: PERRL, EOMI, eyes nml inspection Ears, Nose, Throat Exam: normal ENT inspection, pharynx normal, moist mucous membranes Neck Exam: normal inspection, non-tender, supple, full range of motion Respiratory Exam: lungs clear, wheezing (RUL), No respiratory distress Cardiovascular Exam: regular rate/rhythm, normal heart sounds, tachycardia, edema (BLLE, + 3 pitting edema) Gastrointestinal/Abdomen Exam: soft, No tenderness, No mass Extremity Exam: normal inspection, normal range of motion Back Exam: normal inspection, normal range of motion, No CVA tenderness, No vertebral tenderness Male Genitalia Exam: deferred Rectal Exam: deferred OBJECTIVE DATA Vital Signs: Vital Signs - 24 hr Temp Pulse Resp BP Pulse Ox 02/23/23 13:19 100 H 18 94 L 02/23/23 11:04 97.0 F 101 H 18 127/63 94 L 02/23/23 07:32 81 18 95 02/23/23 06:42 97.4 F 86 18 119/65 92 L 02/23/23 04:00 97.8 F 88 18 119/64 94 L 02/23/23 00:00 97.1 F 86 18 116/56 90 L 02/22/23 19:34 97.7 F 107 H 18 137/77 92 L 02/22/23 19:10 90 18 94 L 02/22/23 18:19 95 02/22/23 16:36 97.5 F 91 H 18 113/54 89 L 02/22/23 15:30 104 H 18 93 L 02/22/23 14:00 98.4 F 104 H 19 121/67 93 L 02/22/23 13:45 98.4 F 104 H 19 121/67 93 L Pain Assessment - Last Documented Pain Intensity 7 Pain Scale Used 0-10 Pain Scale Intake and Output: Intake & Output 02/21/23 02/22/23 02/23/23 02/24/23 11:59 11:59 11:59 11:59 Intake Total 1402 Output Total 525 Balance 877 Weight 81.647 kg 81.647 kg Lab Results: Lab Results-Last 24 Hours 02/22/23 02/22/23 02/22/23 Range/Units 13:55 15:43 19:50 WBC (4.0-10.5) x10^3/uL RBC (4.1-5.6) x10^6/uL Hgb (12.5-18.0) g/dL Hct (42-50) % MCV (78-100) fL MCH (26-32) pg MCHC (32-36) g/dL RDW (11.5-14.0) % Plt Count (150-450) x10^3/uL MPV (7.5-11.0) fL Sodium (137-145) mmol/L Potassium (3.5-5.1) mmol/L Chloride (98-107) mmol/L Carbon Dioxide (22-30) mmol/L Anion Gap (5-15) MEQ/L BUN (9-20) mg/dL Creatinine (0.66-1.25) mg/dL Estimated GFR ML/MIN Glucose (74-106) mg/dL Lactic Acid 1.3 (0.4-2.0) Calcium (8.4-10.2) mg/dL Total Bilirubin (0.2-1.3) mg/dL AST (17-59) U/L ALT (0-50) U/L Alkaline Phosphatase (38-126) U/L Troponin I < 0.012 < 0.012 (0.000-0.034) ng/mL Serum Total Protein (6.3-8.2) g/dL Albumin (3.5-5.0) g/dL 02/23/23 02/23/23 Range/Units 04:43 04:43 WBC 14.0 H (4.0-10.5) x10^3/uL RBC 3.22 L (4.1-5.6) x10^6/uL Hgb 9.8 L (12.5-18.0) g/dL Hct 30.7 L (42-50) % MCV 95.3 (78-100) fL MCH 30.4 (26-32) pg MCHC 31.9 L (32-36) g/dL RDW 13.1 (11.5-14.0) % Plt Count 389 (150-450) x10^3/uL MPV 9.0 (7.5-11.0) fL Sodium 135 L (137-145) mmol/L Potassium 4.2 (3.5-5.1) mmol/L Chloride 100 (98-107) mmol/L Carbon Dioxide 34 H (22-30) mmol/L Anion Gap 6.3 (5-15) MEQ/L BUN 24 H (9-20) mg/dL Creatinine 0.95 (0.66-1.25) mg/dL Estimated GFR > 60.0 ML/MIN Glucose 126 H (74-106) mg/dL Lactic Acid (0.4-2.0) Calcium 8.4 (8.4-10.2) mg/dL Total Bilirubin 0.60 (0.2-1.3) mg/dL AST 26 (17-59) U/L ALT 33 (0-50) U/L Alkaline Phosphatase 203 H (38-126) U/L Troponin I (0.000-0.034) ng/mL Serum Total Protein 5.5 L (6.3-8.2) g/dL Albumin 2.6 L (3.5-5.0) g/dL Radiology Exams: Radiology Procedures Category Date Time Status CHEST 1 VIEW (PORTABLE) Stat Exams 02/22/23 11:39 Completed CHEST WITH CONTRAST [CT] Urgent Exams 02/22/23 14:00 Completed Multi-Disciplinary Progress Notes: Multi-Disciplinary Progress Notes 02/23/23 11:44 Case Management Note by Tatyana Ledesma PATIENT CONTINUES ON 3L/NC AT THIS TIME Initialized on 02/23/23 11:44 - END OF NOTE Assessment/Plan (1) Sepsis Current Visit: Yes Status: Acute Assessment & Plan: -2/2 pneumonia -Lactate 2.2 @ 11:50- it appears 200 ml NS fluid blous gave in ER - WBC, HR elevated - Lactate reordered and pending - NS 250 fluid bolus on IP unit - Zosyn IV 02/23 - resolved - Lactate under 2 (2) Pneumonia Current Visit: Yes Status: Acute Assessment & Plan: - Zosyn - NS @ 3LNC - Baseline is room air - CT chest: 02/22 1. Negative pulmonary embolus. 2. New diffuse bilateral consolidating/nonconsolidating airspace disease with small effusions, right lung greater than left. Rule out Covid 19 pneumonia. 3. New axial spine bony metastasis. Diffusely mottled appearing liver, probably metastatic. - Chest XR 02/22 Portable apical lordotic chest now underinflated. New diffuse right lung and left base patchy consolidating/nonconsolidating airspace disease, possible Covid 19 pneumonia in right clinical setting. Heart not enlarged. Bony thorax intact again with mild degenerative changes. - COVID/ Flu negative 02/23 - steroids stopped - requiring 3LNC O2- 94% - BC X2 pending Code(s): J18.9 - PNEUMONIA, UNSPECIFIED ORGANISM (3) Prostate cancer metastatic to bone Current Visit: Yes Status: Acute Assessment & Plan: - currently receiving oral OP tx - Continue home meds- pt has brought medication in - oncologist Dr. Tovar - see CT results Code(s): C61 - MALIGNANT NEOPLASM OF PROSTATE; C79.51 - SECONDARY MALIGNANT NEOPLASM OF BONE (4) Shortness of breath Current Visit: Yes Status: Acute Assessment & Plan: -r/t pneumonia/ CHF - CT scan pending - O2 3LNC- Baseline RA - prednisone 20mg BID 02/23 - steriods stopped Code(s): R06.02 - SHORTNESS OF BREATH (5) PICC (peripherally inserted central catheter) in place Current Visit: Yes Status: Acute Assessment & Plan: - Discussed with Dr. Fairbanks- ok for PICC line to be removed. - Finger lac appears to be healed and no s/s of infection - Order for line d/c placed 02/23 - PICC line to remain while IP since it is being used - Will discontinue at discharge. Code(s): Z45.2 - ENCOUNTER FOR ADJUSTMENT AND MANAGEMENT OF VAD (6) Hypothyroidism Current Visit: Yes Status: Chronic Assessment & Plan: -Continue Levothyroxine Code(s): E03.9 - HYPOTHYROIDISM, UNSPECIFIED (7) CHF (congestive heart failure) Current Visit: Yes Status: Chronic Assessment & Plan: - Echo 12/11/21: IMPRESSION: 1. MILD CONCENTRIC LEFT VENTRICULAR HYPERTROPHY WITH NORMAL LEFT VENTRICULAR SYSTOLIC FUNCTION. 2. SUGGESTION OF LV DIASTOLIC DYSFUNCTION. 3. MILD TO MODERATE AORTIC ROOT DILATATION. 4. MILD TO MODERATE MITRAL REGURGITATION AND TRACE TO MILD TRICUSPID REGURGITATION. - + 3 pitting edema - Started lasix 20mg IV BID 02/23 - Lasix decreased to 20mg daily VTE:Lovenox Code: Full D/C plan: 1-2 days Next of kin: Code(s): I50.9 - HEART FAILURE, UNSPECIFIED
[2023-02-23] MEDS: REMERON 30 MG PO SCH (21:15)
[2023-02-24 05:12] LABS: Hematocrit 31.2 % (42-50); Hemoglobin 9.8 g/dL (12.5-18.0); Mean Cell Volume 95.7 fL (78-100); Mean Corpuscular Hemoglobin 30.1 pg (26-32); Mean Corpuscular Hgb Concent. 31.4 g/dL (32-36); Mean Platelet Volume 9.4 fL (7.5-11.0); Platelet Count 398 x10^3/uL (150-450); Red Blood Count 3.26 x10^6/uL (4.1-5.6); Red Cell Distribution Width 13.2 % (11.5-14.0); White Blood Count 13.5 x10^3/uL (4.0-10.5)
[2023-02-24 05:30] LABS: ALBUMIN 2.8 g/dL (3.5-5.0); ALKALINE PHOSPHATASE 190 U/L (38-126); ANION GAP 8.9 MEQ/L (5-15); BLOOD UREA NITROGEN 28 mg/dL (9-20); CHLORIDE 97 mmol/L (98-107); Carbon Dioxide 34 mmol/L (22-30); Creatinine 1 0.68 mg/dL (0.66-1.25); EST GLOMERULAR FILTRATION RATE > 60.0 ML/MIN; Glucose 118 mg/dL (74-106); SGOT/AST 23 U/L (17-59); SGPT/ALT 29 U/L (0-50); SODIUM 136 mmol/L (137-145); Total Protein 5.7 g/dL (6.3-8.2)
[2023-02-24] MEDS: PIPERACILLIN/TAZOBACTAM 4.5 GM in Sodium Chloride 100ML MINI-BAG PLUS 100 ML IV SCH (06:04)
[2023-02-24] MEDS: PROVENTIL 2.5 MG/3 ML NEB IH SCH (07:04)
--- NOTE | 2023-02-24 07:34 | PCM.NOTE ---
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 Pt came into the ER C/O Cough for almost 2 weeks with increased SOB, and fever for 3 days. He has had some intermittent, non radiating CP in the center of his chest for 3 days as well. Pt reports it's mostly in the morning. Activity made his sxs worse. Nothing made him feel better. In ER 02 sats 87% on room air; he doesn't wear oxygen at home. 02 @ 3L per n/c applied and 02 sats increased to 94%. Patient with a dry, non-productive cough present. + 3 pitting edema to BLLE. PICC line noted to LUE for recent infection and injury to finger. Antibiotics prescribed by Dr. Fairbanks- ID, OP. is wanting PICC line removed if OK with Dr. Fairbanks. Will reach out to him to discuss. Pt has a Lactic acid of 2.2, CBC 14.8, Chest XR shows right sided pneumonia, HR elevated. Does meet requirements for sepsis. BCX2 drawn in ER and pending. 1st trop negative. 02/23/23 Pt explained he is feeling much better today. Lactate now under 2. Edema and SOB have improved. Troponins x3 negative. CT negative for PE and showed BL small effusions. Will decrease Lasix and stop steroids. Pt continues to require 3 LNC and baseline is RA. Will try to wean. Spoke with Dr. Fairbanks yesterday and he is ok with PICC line removal. Nursing is currently using for IV access and we will plan to remove at D/C. BC X2 pending. Pt denies CP, Abd pain, N/V/D. 02/24/23 Pt resting in bed. He continues to require oxygen. Incentive spirometer, duonebs, and mucinex added. Pt is able to sit up in a chair today. He has been able to walk around the unit as well. Will continue to try and wean. Blood cultures negative. PCP- Dr. Gipson Rotating Equipment Specialist: Dr. Johnson - Review of Systems Constitutional: No Fever, No Chills Eyes: No Symptoms Ears, Nose, & Throat: No Symptoms Respiratory: No Cough, No Short Of Breath Cardiac: No Chest Pain, No Edema, No Syncope Abdominal/Gastrointestinal: No Abdominal Pain, No Nausea, No Vomiting, No Diarrhea Genitourinary Symptoms: No Dysuria Musculoskeletal: No Back Pain, No Neck Pain Skin: No Rash Neurological: No Dizziness, No Focal Weakness, No Sensory Changes Psychological: No Symptoms Endocrine: No Symptoms Hematologic/Lymphatic: No Symptoms Immunological/Allergic: No Symptoms Objective Exam General Appearance: no apparent distress, alert Neurologic Exam: alert, oriented x 3, cooperative, normal mood/affect, nml cerebellar function, sensation nml, No motor deficits Skin Exam: normal color, warm, dry Eye Exam: PERRL, EOMI, eyes nml inspection Ears, Nose, Throat Exam: normal ENT inspection, pharynx normal, moist mucous membranes Neck Exam: normal inspection, non-tender, supple, full range of motion Respiratory Exam: normal breath sounds, lungs clear, No respiratory distress Cardiovascular Exam: regular rate/rhythm, normal heart sounds Gastrointestinal/Abdomen Exam: soft, No tenderness, No mass Extremity Exam: normal inspection, normal range of motion Back Exam: normal inspection, normal range of motion, No CVA tenderness, No vertebral tenderness Male Genitalia Exam: deferred Rectal Exam: deferred OBJECTIVE DATA Vital Signs: Vital Signs - 24 hr Temp Pulse Resp BP Pulse Ox 02/24/23 07:16 96.8 F 90 18 144/88 92 L 02/24/23 04:00 97.1 F 92 H 22 152/77 91 L 02/23/23 23:25 97.8 F 75 18 112/61 91 L 02/23/23 19:30 82 18 95 02/23/23 19:25 97.1 F 87 18 126/82 92 L 02/23/23 16:00 98.7 F 84 18 121/57 90 L 02/23/23 13:19 100 H 18 94 L 02/23/23 11:04 97.0 F 101 H 18 127/63 94 L 02/23/23 07:32 81 18 95 Pain Assessment - Last Documented Pain Intensity 0 Pain Scale Used 0-10 Pain Scale Intake and Output: Intake & Output 02/21/23 02/22/23 02/23/23 02/24/23 11:59 11:59 11:59 11:59 Intake Total 1402 1220 Output Total 525 200 Balance 877 1020 Weight 81.647 kg 81.647 kg Lab Results: Lab Results-Last 24 Hours 02/24/23 02/24/23 Range/Units 05:00 05:00 WBC 13.5 H (4.0-10.5) x10^3/uL RBC 3.26 L (4.1-5.6) x10^6/uL Hgb 9.8 L (12.5-18.0) g/dL Hct 31.2 L (42-50) % MCV 95.7 (78-100) fL MCH 30.1 (26-32) pg MCHC 31.4 L (32-36) g/dL RDW 13.2 (11.5-14.0) % Plt Count 398 (150-450) x10^3/uL MPV 9.4 (7.5-11.0) fL Sodium 136 L (137-145) mmol/L Potassium 4.0 (3.5-5.1) mmol/L Chloride 97 L (98-107) mmol/L Carbon Dioxide 34 H (22-30) mmol/L Anion Gap 8.9 (5-15) MEQ/L BUN 28 H (9-20) mg/dL Creatinine 0.68 (0.66-1.25) mg/dL Estimated GFR > 60.0 ML/MIN Glucose 118 H (74-106) mg/dL Calcium 9.0 (8.4-10.2) mg/dL Total Bilirubin 0.40 (0.2-1.3) mg/dL AST 23 (17-59) U/L ALT 29 (0-50) U/L Alkaline Phosphatase 190 H (38-126) U/L Serum Total Protein 5.7 L (6.3-8.2) g/dL Albumin 2.8 L (3.5-5.0) g/dL Radiology Exams: Radiology Procedures Category Date Time Status CHEST 1 VIEW (PORTABLE) Stat Exams 02/22/23 11:39 Completed CHEST WITH CONTRAST [CT] Urgent Exams 02/22/23 14:00 Completed Multi-Disciplinary Progress Notes: Multi-Disciplinary Progress Notes 02/23/23 11:44 Case Management Note by Tatyana Ledesma PATIENT CONTINUES ON 3L/NC AT THIS TIME Initialized on 02/23/23 11:44 - END OF NOTE Assessment/Plan (1) Sepsis Current Visit: Yes Status: Acute Assessment & Plan: -2/2 pneumonia -Lactate 2.2 @ 11:50- it appears 200 ml NS fluid blous gave in ER - WBC, HR elevated - Lactate reordered and pending - NS 250 fluid bolus on IP unit - Zosyn IV 02/23 - resolved - Lactate under 2 (2) Pneumonia Current Visit: Yes Status: Acute Assessment & Plan: - Zosyn - NS @ 3LNC - Baseline is room air - CT chest: 02/22 1. Negative pulmonary embolus. 2. New diffuse bilateral consolidating/nonconsolidating airspace disease with small effusions, right lung greater than left. Rule out Covid 19 pneumonia. 3. New axial spine bony metastasis. Diffusely mottled appearing liver, probably metastatic. - Chest XR 02/22 Portable apical lordotic chest now underinflated. New diffuse right lung and left base patchy consolidating/nonconsolidating airspace disease, possible Covid 19 pneumonia in right clinical setting. Heart not enlarged. Bony thorax intact again with mild degenerative changes. - COVID/ Flu negative 02/23 - steroids stopped - requiring 3LNC O2- 94% - BC X2 pending 02/24 - BC pending - O2 @ 2LNC - O2 at 92% Code(s): J18.9 - PNEUMONIA, UNSPECIFIED ORGANISM (3) Prostate cancer metastatic to bone Current Visit: Yes Status: Acute Assessment & Plan: - currently receiving oral OP tx - Continue home meds- pt has brought medication in - oncologist Dr. Tovar - see CT results Code(s): C61 - MALIGNANT NEOPLASM OF PROSTATE; C79.51 - SECONDARY MALIGNANT NEOPLASM OF BONE (4) Shortness of breath Current Visit: Yes Status: Acute Assessment & Plan: -r/t pneumonia/ CHF - CT scan pending - O2 3LNC- Baseline RA - prednisone 20mg BID 02/23 - steriods stopped Code(s): R06.02 - SHORTNESS OF BREATH (5) PICC (peripherally inserted central catheter) in place Current Visit: Yes Status: Acute Assessment & Plan: - Discussed with Dr. Fairbanks- ok for PICC line to be removed. - Finger lac appears to be healed and no s/s of infection - Order for line d/c placed 02/23 - PICC line to remain while IP since it is being used - Will discontinue at discharge. Code(s): Z45.2 - ENCOUNTER FOR ADJUSTMENT AND MANAGEMENT OF VAD (6) Hypothyroidism Current Visit: Yes Status: Chronic Assessment & Plan: -Continue Levothyroxine Code(s): E03.9 - HYPOTHYROIDISM, UNSPECIFIED (7) CHF (congestive heart failure) Current Visit: Yes Status: Chronic Assessment & Plan: - Echo 12/11/21: IMPRESSION: 1. MILD CONCENTRIC LEFT VENTRICULAR HYPERTROPHY WITH NORMAL LEFT VENTRICULAR SYSTOLIC FUNCTION. 2. SUGGESTION OF LV DIASTOLIC DYSFUNCTION. 3. MILD TO MODERATE AORTIC ROOT DILATATION. 4. MILD TO MODERATE MITRAL REGURGITATION AND TRACE TO MILD TRICUSPID REGURGITATION. - + 3 pitting edema - Started lasix 20mg IV BID 02/23 - Lasix decreased to 20mg daily VTE:Lovenox Code: Full D/C plan: 1-2 days Next of kin: Code(s): I50.9 - HEART FAILURE, UNSPECIFIED
[2023-02-24] MEDS ORDERED: Lasix 20 MG/2 ML IV SCH (10:00)
[2023-02-24] MEDS ORDERED: MUCINEX DM 600/30MG PO SCH (10:00)
[2023-02-24] MEDS: Calcium 500MG W/Vit D Tablet PO SCH (10:03)
[2023-02-24] MEDS: Singulair 10 MG PO SCH (10:03)
[2023-02-24] MEDS: EFFEXOR 37.5 MG PO SCH (10:03)
[2023-02-24] MEDS: Compazine 5 MG PO SCH (10:03)
[2023-02-24] MEDS: CLARITIN 10 MG PO SCH (10:03)
[2023-02-24] MEDS: ANTIVERT 25 MG PO SCH ×2 (10:03→14:15)
[2023-02-24] MEDS: Neurontin PO SCH ×2 (10:03→14:14)
[2023-02-24] MEDS: ECOTRIN 81 MG PO SCH (10:04)
[2023-02-24] MEDS: PATIENT OWN MEDICATION PO SCH ×2 (10:04→14:16)
[2023-02-24] MEDS: Proscar 5 MG PO SCH (10:05)
[2023-02-24] MEDS: HYDROCODONE-ACETAMIN 10-325 MG PO SCH ×2 (10:05→14:14)
[2023-02-24] MEDS: SYNTHROID 88 MCG PO SCH (10:05)
[2023-02-24] MEDS: DUONEB 0.5-3 MG/3 ml Neb IH SCH ×2 (10:40→13:56)
[2023-02-24 11:25] VITALS: BP 120/60; TEMP 96.6
--- NOTE | 2023-02-24 13:54 | PCM.DS ---
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 Pt came into the ER C/O Cough for almost 2 weeks with increased SOB, and fever for 3 days. He has had some intermittent, non radiating CP in the center of his chest for 3 days as well. Pt reports it's mostly in the morning. Activity made his sxs worse. Nothing made him feel better. In ER 02 sats 87% on room air; he doesn't wear oxygen at home. 02 @ 3L per n/c applied and 02 sats increased to 94%. Patient with a dry, non-productive cough present. + 3 pitting edema to BLLE. PICC line noted to LUE for recent infection and injury to finger. Antibiotics prescribed by Dr. Fairbanks- ID, OP. is wanting PICC line removed if OK with Dr. Fairbanks. Will reach out to him to discuss. Pt has a Lactic acid of 2.2, CBC 14.8, Chest XR shows right sided pneumonia, HR elevated. Does meet requirements for sepsis. BCX2 drawn in ER and pending. 1st trop negative. 02/23/23 Pt explained he is feeling much better today. Lactate now under 2. Edema and SOB have improved. Troponins x3 negative. CT negative for PE and showed BL small effusions. Will decrease Lasix and stop steroids. Pt continues to require 3 LNC and baseline is RA. Will try to wean. Spoke with Dr. Fairbanks yesterday and he is ok with PICC line removal. Nursing is currently using for IV access and we will plan to remove at D/C. BC X2 pending. Pt denies CP, Abd pain, N/V/D. 02/24/23 Pt is able to sit up in a chair today. He continues to require oxygen. Incentive spirometer, duonebs, and mucinex added. He has been able to walk around the unit as well. Will continue to try and wean O2. Pt is ok with home oxygen if he qualifies. Blood cultures negative. Pt denies any further concerns and is feeling much better. PCP- Dr. Gipson Senior Qc Technician: Dr. Johnson - Vitals & Intake/Output Vital Signs: Vital Signs Temperature 96.6 F 02/24/23 11:25 Pulse Rate 107 H 02/24/23 12:25 Respiratory Rate 16 02/24/23 11:25 Blood Pressure 120/60 02/24/23 11:25 O2 Sat by Pulse Oximetry 86 L 02/24/23 12:25 Intake & Output: Intake & Output 02/22/23 02/23/23 02/24/23 02/25/23 11:59 11:59 11:59 11:59 Intake Total 1402 1340 240 Output Total 525 200 300 Balance 877 1140 -60 Weight 81.647 kg 81.647 kg - Lab Result Diagrams: 02/24/23 05:00 02/24/23 05:00 Lab Results-Last 24 Hrs: Lab Results-Last 24 Hours 02/24/23 02/24/23 Range/Units 05:00 05:00 WBC 13.5 H (4.0-10.5) x10^3/uL RBC 3.26 L (4.1-5.6) x10^6/uL Hgb 9.8 L (12.5-18.0) g/dL Hct 31.2 L (42-50) % MCV 95.7 (78-100) fL MCH 30.1 (26-32) pg MCHC 31.4 L (32-36) g/dL RDW 13.2 (11.5-14.0) % Plt Count 398 (150-450) x10^3/uL MPV 9.4 (7.5-11.0) fL Sodium 136 L (137-145) mmol/L Potassium 4.0 (3.5-5.1) mmol/L Chloride 97 L (98-107) mmol/L Carbon Dioxide 34 H (22-30) mmol/L Anion Gap 8.9 (5-15) MEQ/L BUN 28 H (9-20) mg/dL Creatinine 0.68 (0.66-1.25) mg/dL Estimated GFR > 60.0 ML/MIN Glucose 118 H (74-106) mg/dL Calcium 9.0 (8.4-10.2) mg/dL Total Bilirubin 0.40 (0.2-1.3) mg/dL AST 23 (17-59) U/L ALT 29 (0-50) U/L Alkaline Phosphatase 190 H (38-126) U/L Serum Total Protein 5.7 L (6.3-8.2) g/dL Albumin 2.8 L (3.5-5.0) g/dL Micro Results-Entire Visit: Microbiology 02/22/23 12:10 Blood Culture - Preliminary Blood 02/22/23 12:15 Blood Culture - Preliminary Blood - Radiology Exams Ordered Rad Exams-Entire Visit: Radiology Procedures Category Date Time Status CHEST WITH CONTRAST [CT] Urgent Exams 02/22/23 14:00 Completed - Procedures and Test Procedures and Tests throughout Hospitalization: Therapy Orders & Screens 02/22/23 13:48 ST Screen per Nursing Assess ONCE Comment: Protocol Order Physician Instructions: Greater than [address] Admission Screening Reason For Exam: Triggered on Admission Diagnosis: PNE CVA/Dyshpagia/Aphasia: No Cognitive Deficits: No Dehydration/Nutrition Deficit: No Reflux: No Oral-Motor Difficulties: No Pneumonia: Yes [facility] Resident: No Total Points: 5 02/22/23 13:56 Oxygen Nasal Cannula 3 lpm Comment: Keep O2 sat > 92% wean as tolerated Diagnosis: PNE Respiratory Therapy Assessment DAILY Comment: eval and treat PRN Diagnosis: PNE 02/24/23 09:50 Incentive Spirometry UD Comment: Q hour x 10 Diagnosis: PNE 02/24/23 13:39 Qualify for Home Oxygen TODAY Comment: Diagnosis: PNE Discharge Exam General Appearance: no apparent distress, alert Neurologic Exam: alert, oriented x 3, cooperative, normal mood/affect, nml cerebellar function, sensation nml, No motor deficits Eye Exam: PERRL, EOMI, eyes nml inspection Ears, Nose, Throat Exam: normal ENT inspection, pharynx normal, moist mucous membranes Neck Exam: normal inspection, non-tender, supple, full range of motion Respiratory Exam: normal breath sounds, lungs clear, No respiratory distress Cardiovascular Exam: regular rate/rhythm, normal heart sounds Gastrointestinal/Abdomen Exam: soft, No tenderness, No mass Male Genitalia Exam: deferred Rectal Exam: deferred Back Exam: normal inspection, normal range of motion, No CVA tenderness, No vertebral tenderness Extremity Exam: normal inspection, normal range of motion Skin Exam: normal color, warm, dry Final Diagnosis/Problem List - Final Discharge Diagnosis/Problem (1) Sepsis Current Visit: Yes Status: Acute Assessment & Plan: -2/2 pneumonia -Lactate 2.2 @ 11:50- it appears 200 ml NS fluid blous gave in ER - WBC, HR elevated - Lactate reordered and pending - NS 250 fluid bolus on IP unit - Zosyn IV 02/23 - resolved - Lactate under 2 (2) Pneumonia Current Visit: Yes Status: Acute Assessment & Plan: - Zosyn - NS @ 3LNC - Baseline is room air - CT chest: 02/22 1. Negative pulmonary embolus. 2. New diffuse bilateral consolidating/nonconsolidating airspace disease with small effusions, right lung greater than left. Rule out Covid 19 pneumonia. 3. New axial spine bony metastasis. Diffusely mottled appearing liver, probably metastatic. - Chest XR 02/22 Portable apical lordotic chest now underinflated. New diffuse right lung and left base patchy consolidating/nonconsolidating airspace disease, possible Covid 19 pneumonia in right clinical setting. Heart not enlarged. Bony thorax intact again with mild degenerative changes. - COVID/ Flu negative 02/23 - steroids stopped - requiring 3LNC O2- 94% - BC X2 pending 02/24 - BC x2 negative - O2 @ 1LNC - O2 at 92% - will have RT qualify for home oxygen Code(s): J18.9 - PNEUMONIA, UNSPECIFIED ORGANISM (3) Prostate cancer metastatic to bone Current Visit: Yes Status: Acute Assessment & Plan: - currently receiving oral OP tx - Continue home meds- pt has brought medication in - oncologist Dr. Stephenson - see CT results Code(s): C61 - MALIGNANT NEOPLASM OF PROSTATE; C79.51 - SECONDARY MALIGNANT NEOPLASM OF BONE (4) Shortness of breath Current Visit: Yes Status: Acute Assessment & Plan: -r/t pneumonia/ CHF - CT scan pending - O2 3LNC- Baseline RA - prednisone 20mg BID 02/23 - steriods stopped Code(s): R06.02 - SHORTNESS OF BREATH (5) PICC (peripherally inserted central catheter) in place Current Visit: Yes Status: Acute Assessment & Plan: - Discussed with Dr. Fairbanks- ok for PICC line to be removed. - Finger lac appears to be healed and no s/s of infection - Order for line d/c placed 02/23 - PICC line to remain while IP since it is being used - Will discontinue at discharge. Code(s): Z45.2 - ENCOUNTER FOR ADJUSTMENT AND MANAGEMENT OF VAD (6) Hypothyroidism Current Visit: Yes Status: Chronic Assessment & Plan: -Continue Levothyroxine Code(s): E03.9 - HYPOTHYROIDISM, UNSPECIFIED (7) CHF (congestive heart failure) Current Visit: Yes Status: Chronic Assessment & Plan: - Echo 12/11/21: IMPRESSION: 1. MILD CONCENTRIC LEFT VENTRICULAR HYPERTROPHY WITH NORMAL LEFT VENTRICULAR SYSTOLIC FUNCTION. 2. SUGGESTION OF LV DIASTOLIC DYSFUNCTION. 3. MILD TO MODERATE AORTIC ROOT DILATATION. 4. MILD TO MODERATE MITRAL REGURGITATION AND TRACE TO MILD TRICUSPID REGURGITATION. - + 3 pitting edema - Started lasix 20mg IV BID 02/23 - Lasix decreased to 20mg daily 02/24 - edema resolved Code(s): I50.9 - HEART FAILURE, UNSPECIFIED - Discharge Discharge Date: 02/24/23 Disposition: Home, Self-Care Condition: Stable Prescriptions: Continue Aspirin EC 81 mg [Ecotrin 81 mg] 81 mg PO DAILY Levothyroxine Sodium 88 Mcg [Synthroid 88 Mcg] 88 mcg PO DAILY Enzalutamide [Xtandi] 160 mg PO DAILY Gabapentin [Neurontin] 400 mg PO TID Ca/D3/Mag Ox/Zinc/Bottom Bleacher/[place]/Bor [Calcium 600-D3 Plus Caplet] 1 each PO BID Prochlorperazine Maleate 10 mg PO BID Levocetirizine Dihydrochloride [Allergy Relief] 5 mg PO DAILY Meclizine HCl 25 mg [Antivert 25 mg] 25 mg PO TID Finasteride 5 mg [Proscar 5 MG] 5 mg PO DAILY Venlafaxine HCl 37.5 mg [Effexor 37.5 mg] 37.5 mg PO DAILY Montelukast Sodium 10 mg [Singulair 10 MG] 10 mg PO DAILY Hydrocodone/Acetaminophen [Hydrocodone-Acetamin 10-325 mg] 10 mg PO QID Vibegron [Gemtesa] 75 mg PO DAILY Mirtazapine 30 mg [Remeron 30 mg] 30 mg PO HS Follow up with: TARA STEPHENSON [COURTESY STAFF] - 03/04/23 10:45 am () LISA BENSON MD [Primary Care Provider] - 03/08/23 3:45 pm ([facility])
[2023-02-24 14:03] VITALS: PULSE 89; RESP 20; O2SAT 93
== END 2023-02-24 15:30 | disposition home or self-care (01) ==
LOC: ED 10:36 → MED SURG 13:17
PROVIDERS: ADMIT Internal Medicine; ATTEND Internal Medicine
DX: A41.9 Sepsis, unspecified organism (principal); J18.9 Pneumonia, unspecified organism; C61 Malignant neoplasm of prostate; R06.02 Shortness of breath; E03.9 Hypothyroidism, unspecified; I51.9 Heart disease, unspecified; R60.0 Localized edema; I50.9 Heart failure, unspecified; Z45.2 Encounter for adjustment and management of vascular access device; Z85.830 Personal history of malignant neoplasm of bone; Z79.899 Other long term (current) drug therapy; Z20.828 Contact with and (suspected) exposure to other viral communicable diseases
CPT/HCPCS: 0241U; 36000; 36415; 71045; 71260; 80053; 83605; 83880; 84484; 85025; 85027; 85610; 87040; 93005; 94640; 94760; 96365; 96367; 96374; 99211; 99285; G0378; Q3014; J0456; J0878; J1642; J1650; J1940; J2543; J7609; A9270-GY

== ENCOUNTER 2024-06-22 06:05 | Emergency (ER) | payer MEDICARE, OTHER ==
--- NOTE | 2024-06-22 06:22 | ERPHSYRPT ---
- History of Present Illness Source: patient, family () Exam Limitations: no limitations Hx Tetanus, Diphtheria Vaccination/Date Given: Yes Hx Influenza Vaccination/Date Given: Yes Hx Pneumococcal Vaccination/Date Given: Yes <KIA ESTRADA - Last Filed: 06/22/24 07:26> <JOHN VALENTE - Last Filed: 06/22/24 14:12> - History of Present Illness Time Seen by Provider: 06/22/24 06:05 Physician History: About 1 hour ago pt was at home and lost consciousness falling back onto boxes. Pt's states pt has had episodes of brief loss of consciousness for the past 3 years while taking Xtandi for his bone cancer but this time was unconscious for about 2 minutes, the longest yet. Pt denies chest pain, shortness of air, vomiting, abdominal pain; admits to a slight headache. (KIA ESTRADA) Allergies/Adverse Reactions: No Known Drug Allergies Allergy (Verified 06/22/24 06:38) Home Medications: Aspirin EC 81 mg [Ecotrin 81 mg] 81 mg PO DAILY 01/13/23 [History] Enzalutamide [Xtandi] 160 mg PO DAILY 01/13/23 [History] Levothyroxine Sodium 88 Mcg [Synthroid 88 Mcg] 112 mcg PO DAILY 01/13/23 [History] Ca/D3/Mag Ox/Zinc/Business Systems Developer/[place]/Bor [Calcium 600-D3 Plus Caplet] 1 each PO BID 01/14/23 [History] Finasteride 5 mg [Proscar 5 MG] 5 mg PO DAILY 01/14/23 [History] Levocetirizine Dihydrochloride [Allergy Relief] 5 mg PO DAILY 01/14/23 [History] Meclizine HCl 25 mg [Antivert 25 mg] 25 mg PO TID 01/14/23 [History] Montelukast Sodium 10 mg [Singulair 10 MG] 10 mg PO DAILY 01/14/23 [History] Prochlorperazine Maleate 10 mg PO BID 01/14/23 [History] Venlafaxine HCl 37.5 mg [Effexor 37.5 mg] 37.5 mg PO DAILY 01/14/23 [History] Mirtazapine 30 mg [Remeron 30 mg] 30 mg PO HS 02/22/23 [History] Docusate Sodium [Stool Softener] 100 mg PO DAILY 06/22/24 [History] - Past Medical History Pertinent Past Medical History: Yes Neurological History: No Pertinent History ENT History: No Pertinent History Cardiac History: No Pertinent History Respiratory History: No Pertinent History Endocrine Medical History: Hypothyroidism, Other Musculoskeletal History: Fractures, Osteoarthritis GI Medical History: Hernia History: No Pertinent History Psycho-Social History: No Pertinent History Male Reproductive Disorders: Prostate Cancer, Prostate Problems Other Medical History: 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 ENLARGED PROSTATE, PROSTATE CA - Past Surgical History Past Surgical History: Yes Neuro Surgical History: No Pertinent History Cardiac: No Pertinent History Respiratory: No Pertinent History Gastrointestinal: Appendectomy, Hernia Repair, Other Genitourinary: No Pertinent History Musculoskeletal: Orthopedic Surgery Male Surgical History: No Pertinent History Other Surgical History: knee, right middle finger - Social History Smoking Status: Former smoker How long have you smoked: 30 years Exposure to second hand smoke: Yes Drug Use: none Patient Lives Alone: No <KIA ESTRADA - Last Filed: 06/22/24 07:26> - Review of Systems Respiratory: No Dyspnea Cardiac: No Chest Pain Abdominal/Gastrointestinal: No Abdominal Pain, No Vomiting Neurological: Other (syncope) <KIA ESTRADA - Last Filed: 06/22/24 07:26> Physical Exam - Niru Coma Scale Best Eye Response (Niru): (4) open spontaneously Best Verbal Response (Indian): (5) oriented Best Motor Response (Indian): (6) obeys commands Niru Total: 15 - Physical Exam General Appearance: alert Eye Exam: right eye: PERRL, EOMI Ears, Nose, Throat Exam: pharynx normal, pharyngeal erythema (mild), other (cerumen occlusion of both ears) Neck Exam: other (mild posterior neck tenderness) Respiratory: normal breath sounds Cardiovascular: normal heart sounds Gastrointestinal: normal bowel sounds Back Exam: No vertebral tenderness Extremity Exam: normal range of motion Mental Status: alert, oriented x 3, 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 Exam: normal hearing, normal speech Motor/Sensory: no motor deficit, no sensory deficit Skin Exam: warm, dry <KIA ESTRADA - Last Filed: 06/22/24 07:26> - Nursing Vital Signs Nursing Vital Signs: Initial Vital Signs O2 Sat by Pulse Oximetry 57 L 06/22/24 06:14 Pain Scale Pain Intensity 0 Ordered Tests: Active Orders 24 hr Category Date Time Status Cervical Collar Application STAT Care 06/22/24 06:33 Active EKG-ER Only STAT Care 06/22/24 06:33 Active IV Insertion STAT Care 06/22/24 06:33 Active Tele-Health Consult ROUTINE Cons 06/22/24 11:47 Active CERVICAL SPINE WO CONTRAST [CT] Stat Exams 06/22/24 06:32 Completed CHEST 1 VIEW (PORTABLE) Stat Exams 06/22/24 06:[address] ANGIOGRAPHY NECK [CT] Stat Exams 06/22/24 08:18 Completed CTA HEAD W AND/OR WO CONTRAST [CT] Stat Exams 06/22/24 08:18 Completed HEAD WITHOUT CONTRAST [CT] Stat Exams 06/22/24 06:32 Completed CBC W DIFF Stat Lab 06/22/24 06:55 Completed CMP Stat Lab 06/22/24 06:55 Completed MAGNESIUM Stat Lab 06/22/24 06:55 Completed TROPONIN Q4H Lab 06/22/24 06:55 Completed TROPONIN Q4H Lab 06/22/24 10:36 Completed TROPONIN Q4H Lab 06/22/24 14:45 Ordered UA W/RFX UR CULTURE Stat Lab 06/22/24 07:53 Completed Medication Summary Generic Name Dose Route Start Last Admin Trade Name Freq PRN Reason Stop Dose Admin Sodium Chloride 1,000 mls @ 100 mls/hr 06/22/24 06:45 06/22/24 07:00 Sodium Chloride 0.9% 1000 Ml IV 07/22/24 06:44 100 mls/hr .Q10H ALY Administration Lab/Rad Data: Laboratory Result Diagrams 06/22/24 06:55 06/22/24 06:55 Laboratory Results 06/22/24 06/22/24 06/22/24 Range/Units 10:36 07:53 06:55 WBC (4.23-9.07) x10^3/uL RBC (4.63-6.08) x10^6/uL Hgb (13.7-17.5) g/dL Hct (40.1-51.0) % MCV (79.0-92.2) fL MCH (25.7-32.2) pg MCHC (32.3-36.5) g/dL RDW (11.6-14.4) % Plt Count (163-337) x10^3/uL MPV (9.4-12.4) fL Gran % (34.0-67.9) % Immature Gran % (Auto) (0.001-0.429) % Nucleat RBC Rel Count (0.00-0.2) % Eos # (Auto) (0.04-0.54) x10^3/uL Immature Gran # (Auto) (0.001-0.031) x10^3u/L Absolute Lymphs (auto) (1.32-3.57) x10^3/uL Absolute Monos (auto) (0.30-0.82) x10^3/uL Absolute Nucleated RBC (0.00-0.012) x10^3u/L Lymphocytes % (21.8-53.1) % Monocytes % (5.3-12.2) % Eosinophils % (0.8-7.0) % Basophils % (0.2-1.2) % Absolute Granulocytes (1.78-5.38) x10^3/uL Basophils # (0.01-0.08) x10^3/uL Sodium (135-145) mmol/L Potassium (3.5-5.1) mmol/L Chloride (98-107) mmol/L Carbon Dioxide (22-30) mmol/L Anion Gap (5-15) MEQ/L BUN (9-20) mg/dL Creatinine (0.66-1.25) mg/dL Estimated GFR ML/MIN Glucose (74-106) mg/dL Calcium (8.4-10.2) mg/dL Magnesium (1.6-2.3) mg/dL Total Bilirubin (0.2-1.3) mg/dL AST (17-59) U/L ALT (0-50) U/L Alkaline Phosphatase (38-126) U/L Troponin I 0.057 H* (0.000-0.033) ng/mL Serum Total Protein (6.3-8.2) g/dL Albumin (3.5-5.0) g/dL Urine Color Yellow (Yellow) Urine Appearance Clear (Clear) Urine pH 5.5 (4.6-8.0) Ur Specific [place] 1.010 (1.005-1.030) Urine Protein Negative (Negative) Urine Glucose (UA) Negative (Negative) mg/dL Urine Ketones Negative (Negative) Urine Blood Negative (Negative) Urine Nitrite Negative (Negative) Urine Bilirubin Negative (Negative) Urine Urobilinogen 0.2 (0.2) mg/dL Ur Leukocyte Esterase Negative (Negative) Urine Microscopic RBC 0-2 (0-5) /HPF Urine Microscopic WBC 0-2 (0-5) /HPF Ur Epithelial Cells None Seen (None Seen) /HPF Urine Bacteria None Seen (None Seen) /HPF Urine Culture Reflexed NO (NO) Influenza Type A Ag NEGATIVE (NEGATIVE) Influenza Type B Ag NEGATIVE (NEGATIVE) RSV (PCR) NEGATIVE (NEGATIVE) SARS-CoV-2 (PCR) NEGATIVE (NEGATIVE) Group A Strep Antibody NOT DETECTED (NEGATIVE) Slides for Path Review 06/22/24 06/22/24 06/22/24 Range/Units 06:55 06:55 06:55 WBC 10.8 H (4.23-9.07) x10^3/uL RBC 4.39 L (4.63-6.08) x10^6/uL Hgb 13.3 L (13.7-17.5) g/dL Hct 41.6 (40.1-51.0) % MCV 94.8 H (79.0-92.2) fL MCH 30.3 (25.7-32.2) pg MCHC 32.0 L (32.3-36.5) g/dL RDW 14.1 (11.6-14.4) % Plt Count 193 (163-337) x10^3/uL MPV 9.5 (9.4-12.4) fL Gran % 94.2 H (34.0-67.9) % Immature Gran % (Auto) 0.9 H (0.001-0.429) % Nucleat RBC Rel Count 0.0 (0.00-0.2) % Eos # (Auto) 0.06 (0.04-0.54) x10^3/uL Immature Gran # (Auto) 0.10 H (0.001-0.031) x10^3u/L Absolute Lymphs (auto) 0.21 L (1.32-3.57) x10^3/uL Absolute Monos (auto) 0.25 L (0.30-0.82) x10^3/uL Absolute Nucleated RBC 0.00 (0.00-0.012) x10^3u/L Lymphocytes % 1.9 L (21.8-53.1) % Monocytes % 2.3 L (5.3-12.2) % Eosinophils % 0.6 L (0.8-7.0) % Basophils % 0.1 L (0.2-1.2) % Absolute Granulocytes 10.16 H (1.78-5.38) x10^3/uL Basophils # 0.01 (0.01-0.08) x10^3/uL Sodium 135 (135-145) mmol/L Potassium 4.2 (3.5-5.1) mmol/L Chloride 103 (98-107) mmol/L Carbon Dioxide 29 (22-30) mmol/L Anion Gap 6.7 (5-15) MEQ/L BUN 27 H (9-20) mg/dL Creatinine 1.40 H (0.66-1.25) mg/dL Estimated GFR 49.9 ML/MIN Glucose 114 H (74-106) mg/dL Calcium 9.0 (8.4-10.2) mg/dL Magnesium 2.2 (1.6-2.3) mg/dL Total Bilirubin 0.70 (0.2-1.3) mg/dL AST 28 (17-59) U/L ALT 20 (0-50) U/L Alkaline Phosphatase 57 (38-126) U/L Troponin I 0.012 (0.000-0.033) ng/mL Serum Total Protein 5.4 L (6.3-8.2) g/dL Albumin 3.2 L (3.5-5.0) g/dL Urine Color (Yellow) Urine Appearance (Clear) Urine pH (4.6-8.0) Ur Specific [place] (1.005-1.030) Urine Protein (Negative) Urine Glucose (UA) (Negative) mg/dL Urine Ketones (Negative) Urine Blood (Negative) Urine Nitrite (Negative) Urine Bilirubin (Negative) Urine Urobilinogen (0.2) mg/dL Ur Leukocyte Esterase (Negative) Urine Microscopic RBC (0-5) /HPF Urine Microscopic WBC (0-5) /HPF Ur Epithelial Cells (None Seen) /HPF Urine Bacteria (None Seen) /HPF Urine Culture Reflexed (NO) Influenza Type A Ag (NEGATIVE) Influenza Type B Ag (NEGATIVE) RSV (PCR) (NEGATIVE) SARS-CoV-2 (PCR) (NEGATIVE) Group A Strep Antibody (NEGATIVE) Slides for Path Review YES - Progress Progress: unchanged, re-examined Counseled pt/family regarding: lab results, diagnosis, rad results <JOHN VALENTE - Last Filed: 06/22/24 14:12> - Progress Progress Note: 06/22/24 08:19 CT scan of the head without contrast was interpreted by the radiologist and I reviewed the impression. The impression states nonacute senile brain when compared to similar study dated 12/15/2022. CT scan of the cervical spine without contrast was interpreted by the radiologist and I reviewed the impression. The impression shows osteopenia, multilevel degenerative disc disease. Nothing acute 06/22/24 11:14 CT angiography of neck was interpreted by the radiologist and I reviewed the impression. The impression states faint, minimal arteriosclerotic calcifications of the aortic arch, both carotid bulbs, right internal carotid artery. Remaining CT angiography of the neck exam is normal. CTA of the head with contrast exam was interpreted by the radiologist and I reviewed the impression. The impression states exam is normal 06/22/24 12:21 I interpreted the patient's laboratory data results. Based on the laboratory data results, the patient has a change in his troponin level from normal to 0.057. I spoke with the teleneurologist, Dr. Abraham. After his assessment of the patient, he feels that the patient should have an MRI scan of the brain with and without contrast as well as a EEG. In addition he should have a syncope w orkup. He does not recommend seizure medications at this time. The patient's family prefers that the patient be transferred to [facility] for further evaluation and management. 06/22/24 12:47 I spoke with [facility] bowling ball patcher Dr. Vanessa and emergency room physician Dr. Rubio. I reviewed the patient history, chief complaint, physical findings and workup results. It was unanimous between Dr. Vanessa and Dr. Rubio that this patient should be inpatient and be monitored however, [facility] does not have availability of the cardiac Full Time Staff Interpreter in the event the troponin continues to increase and therefore we will discuss transfer to [facility]. [facility] declines the transfer 06/22/24 12:48 06/22/24 14:[address] Plascencia, the hospitalist on at [facility]. I reviewed the patient history, chief complaint, physical findings and the workup results with him. He accepts the patient in transfer and the transfer center will contact us when the bed is available. They do believe that will be sometime later today. (JOHN VALENTE) Medical Desision Making - Independent Historian Additional History obtained from: Spouse - Diagnostic Testing Diagnostic test were ordered, analyzed, and reviewed by me: Yes Radiological Interpretation: Reviewed by me, Teleradiologist Report - Risk of complications The pt has a high risk of morbidity or mortality based on: Decision regarding hospitilization or escalation of hosp level of care <JOHN VALENTE - Last Filed: 06/22/24 14:12> - Departure Critical Care Time: No <KIA ESTRADA - Last Filed: 06/22/24 07:26> - Departure Departure Disposition: Transfer <JOHN VALENTE - Last Filed: 06/22/24 14:12> - Departure Clinical Impression: Syncope, Elevated troponin Condition: Fair Referrals: LISA BENSON MD [Primary Care Provider] - Follow up/PCP as directed
[2024-06-22 06:25] VITALS: TEMP 97.2
[2024-06-22] MEDS ORDERED: Sodium Chloride 0.9% 1000 ML 1,000 ML ONE (06:59)
[2024-06-22 07:00] LABS: Absolute Neutrophil Ct (ANC) 10.16 x10^3/uL (1.78-5.38); BASOPHIL % 0.1 % (0.2-1.2); Basophil (Absolute #) 0.01 x10^3/uL (0.01-0.08); Eosinophil % 0.6 % (0.8-7.0); Eosinophil (Absolute #) 0.06 x10^3/uL (0.04-0.54); Hematocrit 41.6 % (40.1-51.0); Hemoglobin 13.3 g/dL (13.7-17.5); IMMATURE GRAN % 0.9 % (0.001-0.429); Lymphocyte (Absolute #) 0.21 x10^3/uL (1.32-3.57); Lymphocytes % 1.9 % (21.8-53.1); Mean Cell Volume 94.8 fL (79.0-92.2); Mean Corpuscular Hemoglobin 30.3 pg (25.7-32.2); Mean Platelet Volume 9.5 fL (9.4-12.4); Monocyte (Absolute #) 0.25 x10^3/uL (0.30-0.82); Monocytes % 2.3 % (5.3-12.2); Neutrophil % 94.2 % (34.0-67.9); Platelet Count 193 x10^3/uL (163-337); Red Blood Count 4.39 x10^6/uL (4.63-6.08); Red Cell Distribution Width 14.1 % (11.6-14.4); White Blood Count 10.8 x10^3/uL (4.23-9.07)
[2024-06-22] MEDS: Sodium Chloride 0.9% 1000 ML 1,000 ML IV SCH (07:00)
[2024-06-22 07:14] LABS: ALBUMIN 3.2 g/dL (3.5-5.0); ANION GAP 6.7 MEQ/L (5-15); BILIRUBIN,TOTAL 0.7 mg/dL (0.2-1.3); Creatinine 1 1.4 mg/dL (0.66-1.25); EST GLOMERULAR FILTRATION RATE 49.9 ML/MIN; MAGNESIUM 2.2 mg/dL (1.6-2.3); Potassium 4.2 mmol/L (3.5-5.1); Total Protein 5.4 g/dL (6.3-8.2)
[2024-06-22 07:31] LABS: Group A Strep NOT DETECTED (NEGATIVE)
[2024-06-22 07:42] LABS: INFLUENZA A NEGATIVE (NEGATIVE); INFLUENZA B NEGATIVE (NEGATIVE); RESPIRATORY SYNCTIAL VIRUS NEGATIVE (NEGATIVE); SARS-CoV-2 Xpert Express NEGATIVE (NEGATIVE)
[2024-06-22 08:24] LABS: Appearance Clear (Clear); Bilirubin Negative (Negative); Blood Negative (Negative); Glucose, Urine Negative (Negative); Ketones Negative (Negative); Leukocyte Esterase Negative (Negative); Nitrite Negative (Negative); Ph 5.5 (4.6-8.0); Protein,Urine Dip Negative (Negative); Urobilinogen 0.2 mg/dL (0.2)
[2024-06-22 08:30] LABS: Slide Review 1 YES
[2024-06-22 08:44] LABS: Bacteria None Seen /HPF (None Seen); Epithelial Cells None Seen /HPF (None Seen); RBC 0-2 /HPF (0-5)
[2024-06-22 08:45] LABS: WBC 0-2 /HPF (0-5)
--- NOTE | 2024-06-22 08:55 | XRAY ---
Indication: Syncope. Status post fall. Multiple contiguous axial images obtained through the head without contrast. Comparison: December 15, 2022 Again age-appropriate global atrophy and minimal periventricular degenerative micro-ischemia bilaterally. No acute intracranial hemorrhage, abnormal extra-axial fluid collection, or mass effect. Fourth ventricle is midline without hydrocephalus. West-white matter differentiation preserved. Bony calvarium intact. Visualized paranasal sinuses and mastoid air cells are clear. Impression: Continued nonacute senile brain.
--- NOTE | 2024-06-22 09:01 | XRAY ---
Indication: Syncope. Status post fall. Multiple contiguous axial images obtained through the cervical spine. Sagittal and coronal reformatted images obtained. Comparison: None Osseous structures demineralized consistent with patient's age. Axial images negative for acute fracture, suspicious bony lesions, or spinal canal stenosis. Mild/moderate C3-C7 degenerative endplate spurring. Also moderate atlantoaxial degenerative arthropathy and multilevel bilateral degenerative facet hypertrophy. Sagittal and coronal reformatted images demonstrates lordotic straightening, positional versus paraspinal spasm. Also C3-C7 disc space loss. No acute compression fracture, subluxation, or jumped facet. Normal appearing craniocervical junction. Visualized noncontrasted soft tissues demonstrates mild bilateral carotid calcifications. Incidental food/fluid in visualized distal esophagus. Lung apices clear. Impression: 1. Negative acute fracture/subluxation. Cervical lordotic straightening, positional versus paraspinal spasm. 2. Chronic findings including osteopenia, multilevel degenerative spondylosis, and bilateral carotid calcifications. 3. Incidental food/fluid in visualized esophagus. Rule out GERD.
--- NOTE | 2024-06-22 09:03 | XRAY ---
Indication: Syncope. Comparison: January 07, 2024 Portable chest again hyperinflated with minimal left lung base subsegmental atelectasis/scarring. Remaining heart and lungs unremarkable. Bony thorax intact again with osteopenia and degenerative changes. No new/acute findings.
--- NOTE | 2024-06-22 11:01 | XRAY ---
Indication: Syncope. Dizziness. Altered mental status. Conventional contrast enhanced CTA neck performed using 80 cc Isovue 370 contrast. 2-D sagittal and coronal reformatted images obtained. Additional 3-D reformatted images obtained using separate workstation. Comparison: None Visualized aorta appear minimally arteriosclerotic without aneurysm/dissection. Widely patent branch right brachiocephalic, left common carotid, and left subclavian arteries. Examination right carotid circulation demonstrates widely patent common carotid and external carotid artery. Very minimal calcifications carotid bulb and origin internal carotid artery. Examination left carotid circulation and a straits widely patent common carotid, internal carotid, and external carotid arteries. Very minimal faint calcifications carotid bulb. Vertebral arteries are bilaterally widely patent with left slightly larger and caliber. CT neck/cervical spine reported separately. Impression: Faint minimal arteriosclerotic calcifications in aortic arch, both carotid bulb, and right internal carotid artery. Remaining CTA neck with contrast exam is normal.
--- NOTE | 2024-06-22 11:03 | XRAY ---
Indication: Syncope. Dizziness. Altered mental status. Conventional contrast enhanced CTA head performed using 80 cc Isovue 370 contrast. 2-D sagittal and coronal reformatted images obtained. Additional 3-D reformatted images obtained using separate workstation. Comparison: None Distal internal carotid arteries are normal in CTA appearance with normal carotid terminus. More distal anterior cerebral and middle cerebral arteries are also normal in CTA appearance bilaterally. Posterior circulation demonstrates normal CTA appearance to distal left/right vertebral, basilar, left/right posterior cerebral, and left/right superior cerebellar arteries. Venous sinuses/drainage unremarkable. No abnormal enhancing intra or extra-axial mass. Impression: Normal CTA head with contrast exam.
--- NOTE | 2024-06-22 12:38 | PCM.NOTE ---
Physician Signature This document was electronically signed by: Jose Abraham DO 06/22/2024 12:35 PM Consult Cover Page FROM: [employer], Call Back Number: [phone] SUBJECT: Consult Recommendations Date and Time of Report: 06/22/2024 12:35 PM ET Items Contained in this Document: Neurology Consult Note Consult Information Member Facility: [facility] Facility Consult ID: [id number] Facility Time Zone: ET Date and Time of Request: 06-22-2024 11:31 AM ET Requesting Clinician: Dr. Arreola Patient Name: JERRY MOORE Date of : 1940 Gender: Male Patient identity was confirmed at the beginning of the consult with the patient/family/staff using two personal identifiers: Patient name and Reason for Consult Reason for Consult: Other Emergency General Chief Complaint: "seizure" Patient Location and Admission Status: ED- Patient is not admitted Family Members and Medical Staff Present During Exam: History of Present Illness: MedHx: CHF, hypothyroidism, prostate cancer with metastatic spread to bone provides much of history as patient is somnolent woke up 6am and went to kitchen then blacked out and fell back. family had to help him back up to walker, then he had a "seizure." eyes rolled up, passed out, face contorted, and goes limp, lasted maybe 5 minutes. he was able to answer some questions for EMS when they arrived. he returned close to his baseline by time of arriving to ED and had another seizure. this was about 30-45 minutes apart. the 3rd episode happened when nurse helped him up to commode. he lost consciousness and went pale, and had sonorous respirations. at baseline he can have full conversations, ambulates with walker, no cognitive issues, but can get upset somewhat easily. he seems to be sleepy after these episodes for a little bit afterward. last episode was about an hour ago. he is somnolent now. he remembers falling down at home, he remembers riding in the ambulance and felt normal then, he remembers the nurses helping him to the commode. now feels OK other than feeling sleepy. he did not sleep much last night and thinks this may be why. he is taking antibiotics now for recent diagnosis of bronchitis, dx'ed with coughing. 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 has had some episodes where he blacks out and also has episodes where he seems to shake before he blacks out. was told this may be side effect from xtandi. meds: aspirin 81mg, stool softener, compazine as needed, mirtazapine, meclizine, proscar, venlafaxine, levothyroxine, singulair. recently started on some medication that starts with "ar" that helps with heart. SocHx: quit tobacco 25 years ago REVIEW OF SYSTEMS 14 point reviewed and is negative except as above. Neurologist and patient are in same time zone, documented as local (union) time. Evaluation date/time: 1137 Imaging read time: N/A IVT decision/time: N/A Number of Documented HPI Elements: 4+ Medical History Other Medical History: CHF, hypothyroidism, prostate cancer with metastatic spread to bone Pertinent Family History: Non contributory Allergies Allergies: NKDA Medications Anti-Coagulants: None Anti-Platelets: ASA 81 mg Other Medications: stool softener, compazine as needed, mirtazapine, meclizine, proscar, venlafaxine, levothyroxine, singulair. recently started on some medication that starts with "ar" that helps with heart. Social History Alcohol Use: None Drug Use: None Tobacco Use: Past Vital Signs Temperature: Afebrile Blood Pressure (mmHg): 122/76 Heart Rate (bpm): 96 Respiration Rate (/min): 20 O2 Sat (%): 93 Date and Time: 06/22/2024 12:19:59 PM ET POC Glucose(mg/dL): 114 Review Of Systems General, Constitutional: See HPI Neurological: See HPI Psychiatric: See HPI Cardiovascular: See HPI Ears, Nose, Throat: See HPI Respiratory: See HPI Gastrointestinal: See HPI Genitourinary: See HPI Musculoskeletal: See HPI Endocrine: See HPI Hematologic, Lymphatic: See HPI Integumentary: See HPI Ophthalmology: See HPI Allergy, Immunology: See HPI Exam Exam: Gen: Well developed, well nourished. No acute distress. MS: Drowsy, oriented name, place, year, not month (June). language at baseline. CV: well-perfused. No edema. injury/safety hazard assessment: NC, EOMI. +blink. Unable to visualize fundi. Sensation intact. Face is symmetric. Hearing intact. Shoulder shrug intact. Tongue midline. Motor: Antigravity in all 4 extremities. Normal bulk. Tone cannot be assessed accurately over the camera. Sens: Intact to light touch in all 4 extremities. MSR: Unable to assess through telemedicine, no clonus noted. Mvmt: No tremors noted. MERLYN/FTN intact. Gait: Deferred. Labs and Imaging Labs available?: Yes Blood Glucose (mg/dL): 114 Other Labs: UA noninfectious no ketones CT Brain Findings: No acute changes Additional CT Image Types Reviewed: CTA Assessment and Recommendations Assessment: syncope vs seizure. most descriptive of syncope, poossibly orthostatic hypotension (at least 2 episode with standing up). had one BP reading 84/51 however other ones systolics 110s or more, may be inaccurately low. however the "face contorting" and his current somnolent state raise concern for seizure. as episodes are within 24 hours of each and diagnostic uncertainty for seizure, no antiseizure med is indicated at this time. CTH CTA unremarkable. Recommendations: - orthostatic vital signs - syncope workup per primary team - MRI brain with and without contrast - routine EEG. if cannot be done inpatient, can be done as outpatient - no indication at this time for antiseizure medication - seizure precautions, fall precautions - lorazepam 2mg (midazolam 5mg) IV at 2 minutes and every 5 minutes thereafter for 3 times max if having seizure that is not aborting - if has a seizure >24 hours from first event, please start vimpat 50mg BID I personally reviewed imaging, chart information including prior notes and labs as available, and discussed with the primary provider. This telemedicine evaluation was performed using a real-time, 2-way, audio and video connection and written or verbal consent was obtained from the patient/surrogate. Disposition: Admit patient to general med/surgery Diagnosis Impression: Other Diagnosis Other: loss of consciousness Case discussed with: Dr. Arreola ICD-10 Code ICD-10 Code (Primary): R55 : Syncope and collapse ICD-10 Code: R41.82 : Altered mental status, unspecified ICD-10 Code: R40.0 : Somnolence Attestation Interaction Mode: Video Only Time of Video Call : 06-22-2024 11:38 AM ET Interaction Attestation: Clinical telemedicine services delivered using HIPAA - compliant interactive video-audio telecommunications while the patient and the rendering provider were not in the same physical location. Written report was provided to the requesting provider. Evaluation Duration (mins): 35 Joe Timer Summary ED Arrival Date and Time: 06-22-2024 06:26 AM ET Date and Time of Request: 06-22-2024 11:31 AM ET Physician Signature This document was electronically signed by: Jose Abraham DO 06/22/2024 12:35 PM
[2024-06-22 13:42] VITALS: PULSE 92; RESP 21
[2024-06-22 16:05] VITALS: BP 86/59; O2SAT 94
[2024-06-22] MEDS: Pepto-Bismol PO ONE (16:28)
== END 2024-06-22 17:24 | disposition short-term general hospital (02) ==
LOC: ED 06:05
DX: R55 Syncope and collapse (principal); R79.89 Other specified abnormal findings of blood chemistry; R56.9 Unspecified convulsions; Z85.46 Personal history of malignant neoplasm of prostate; Z85.830 Personal history of malignant neoplasm of bone; R41.82 Altered mental status, unspecified; Z79.899 Other long term (current) drug therapy
CPT/HCPCS: 0241U; 36415; 70450; 70496; 70498; 71045; 72125; 80053; 81001; 83735; 84484; 85025; 87651; 93005; 99285; Q3014; A9270-GY